=== PATIENT | male | born 1950 | race African-American/Black ===

== ENCOUNTER 2017-04-18 10:44 | Inpatient (IN) ==
[2017-04-18] MEDS ORDERED: SODIUM CHLORIDE 0.9% 500 ML IV STA (11:38)
[2017-04-18 11:50] LABS: Basophils % 0.4 % (0.0-0.8); Eosinophils # 0.3 10*3/uL (0.0-0.87); Hematocrit 36.5 VOL% (42.0-52.0); Hemoglobin 12.4 GM/DL (14.0-18.0); Immature Granulocytes % 0.4 %; Immature Granulocytes Absolute 0.03 #; Lymphocytes # 1.8 10*3/uL (1.4-4.0); Lymphocytes % 20.7 % (21.2-54.2); Mean Corpuscular Hemoglobin 30 PG (27-34); Mean Corpuscular Volume 88.6 FL (87-102); Mean Platelet Volume 9.8 FL (9.6-12.0); Monocytes # 0.7 10*3/uL (0.11-0.8); Monocytes % 7.6 % (1.7-12.7); Neutrophils # 5.7 10*3/uL (1.4-7.4); Neutrophils % 66.9 % (38.7-73.9); Platelet Count 226 T/CUMM (130-400); Red Blood Count 4.12 MC/CUMM (3.8-5.5); Red Cell Distribution Width 13.8 % (9.3-17.3); White Blood Count 8.5 T/CUMM (4-12)
[2017-04-18 12:06] LABS: PT Patient Result 10.9 SECS
--- NOTE | 2017-04-18 12:20 | EKG Report ---
Stationary ECG Study [facility] ER Test Date: 04/18/2017 12:20:43 PM Pat Name: LEIGHA AREVALO Department: Room: Gender: M Staff Rn: : 1950 Requested by: Catrachito Wyatt Order Number: [id number] Reading MD: MARIA DEL CARMEN OLMSTEAD Intervals [place] Rate: 57 P: 32 SD: 169 QRS: 57 QRSD: 98 T: -20 QT: 387 QTc: 381 Interpretive Statements SINUS RHYTHM LOW QRS VOLTAGE IN PRECORDIAL LEADS POSSIBLE INFERIOR MYOCARDIAL INFARCTION, OF INDETERMINATE AGE ANTEROSEPTAL MYOCARDIAL INFARCTION, PROBABLY OLD Electronically Signed On 04-18-17 17:12:23 CDT by MARIA DEL CARMEN OLMSTEAD [email or web address]
--- NOTE | 2017-04-18 12:22 | XRay Report ---
Portable chest. Indication: Shortness of breath. Comparison: January 08, 2016. The heart is enlarged with left ventricular hypertrophy. The pulmonary vasculature is normal. The lung crump are clear. Degenerative changes are present within the spinal column and shoulders. Impression: Stable appearance of the chest. Cardiomegaly. PROCEDURE INTERPRETED AT [facility] DEPARTMENT OF RADIOLOGY Final Report Signed by: Dr. Angelia Ordonez
[2017-04-18 13:18] LABS: Alanine Aminotransferase 18 U/L (16-61); Albumin 3.1 G/DL (3.4-5.0); Alkaline Phosphatase 66 U/L (45-117); Aspartate Amino Transferase 14 U/L (0-37); Bilirubin,Total < 0.39 MG/DL (0.2-1.0); Blood Urea Nitrogen 12 MG/DL (7-18); Calcium 9.4 MG/DL (8.5-10.1); Glucose 117 MG/DL (74-106); Magnesium 2.1 MG/DL (1.8-2.4); Potassium 4.3 MMOL/L (3.5-5.1); Sodium 143 MMOL/L (136-145); Total Protein 6.9 G/DL (6.4-8.3)
--- NOTE | 2017-04-18 13:54 | Emergency Department Note ---
Armando Randall Emily, am scribing for, and in the presence of, Catrachito Pham MD 11:46. Vero Randall Phillip K, MD, personally performed the services described in this documentation, ascribed by Sunitha Roberts in my presence, and it is both accurate and complete [id number] . Arrival - Arrival Chief Complaint: GI Bleed/Rectal ED Nursing Triage Note: HX OF CVA LIMITED INFORMATION FROM PT, DOES SHAKE HIS HEAD TO NO TO COMPLAINTS OF PAIN, PT SENT FOR EVALUATION OF HEMATOCHEZIA Mode of Arrival: Stretcher Limitations: No Limitations Source: Patient Time Seen by Provider: 04/18/17 11:28 - History of Present Illness HPI Narrative: Pt is a 66 y/o male who was transferred from [facility] to ED for evaluation of hematochezia. Pt has mumbled speech from CVA (x2) previously. Pt takes baby aspirin daily and is full code. PMHx of NIDDM. Onset (ago): hour(s) Consistency: constant Severity: moderate Severity scale (1-10): 6 Allergies/Adverse Reactions: Allergies Allergy/AdvReac Type Severity Reaction Status Date / Time No Known Allergies Allergy Verified 04/18/17 10:59 Home Medications: Home Medications Medication Instructions Recorded Confirmed Type Carvedilol [Coreg] 12.5 mg PO BID 10/21/15 04/18/17 History Cyanocobalamin (Vitamin B-12) 1,000 mcg IM Q30D 10/21/15 04/18/17 History [Cyanocobalamin Injection] DULoxetine [Cymbalta] 90 mg PO QAM 10/21/15 04/18/17 History Docusate Sodium Cap [Colace Cap] 200 mg PO QAM 10/21/15 04/18/17 History Lisinopril 40 mg PO QAM 10/21/15 04/18/17 History Metformin HCl 500 mg PO TID 10/21/15 04/18/17 History amLODIPine [Norvasc] 5 mg PO BID 01/06/16 04/18/17 History Bisacodyl Supp [Dulcolax Supp] 10 mg RECTAL BEDTIME #30 01/09/16 04/18/17 Rx Aspirin [Ecotrin] 81 mg PO 0800 01/21/16 04/18/17 History OLANZapine [Olanzapine] 15 mg PO BEDTIME 04/15/16 07/12/17 History Acetaminophen 1,000 mg PO Q6H PRN MDD 3000MG/24H 04/18/17 04/18/17 History Gabapentin [Gabapentin] 600 mg PO BID 04/18/17 04/18/17 History HYDROcodone/ACETAMIN 7.5-325 1 tablet PO DAILY PRN 04/18/17 04/18/17 History [[place] 7.5-325] Insulin Glargine [Lantus] 48 unit SUBCUT BEDTIME 04/18/17 04/18/17 History Insulin Regular [HumuLIN R] 5 - 15 unit SUBCUT 0500,1600,2000 04/18/17 04/18/17 History Omeprazole 20 mg PO QAM 04/18/17 04/18/17 History Review of System - Review of System 12 point system: reviewed and no additional remarkable complaints except as stated - Review of System Constitutional: Absent: fever Respiratory: Absent: respiratory distress Gastrointestinal: Present: hematochezia. Absent: vomiting Skin: Absent: rash Psychiatric: Absent: anxiety Medical,Surgical,& Family Hx - Medical History Cardio: History of: Hypertension, PVD Psychological: History of: Depression No history of: Previous Suicide Attempt Neurology: History of: Cerebrovascular Accident (x2), Dementia No history of: Seizures HEENT: History of: Dental Problems (no teeth) Endocrine: History of: Diabetes Mellitus (NIDDM) Genitourinary: History of: Genitourinary Cancer ([facility]) Gastrointestinal: History of: Gastrointestinal Bleed (current) Musculoskeletal: History of: Amputation (RIGHT AKA) Other: History of: Cancer (PROSTATE) - Surgical History Cardiac Surgeries: Patient Denies: Cardiac Catheterization, Cardiac Surgery Thoracic Surgeries: Patient denies;: Organ Transplant Abdominal Surgeries: Patient denies: Abdominal Surgery, Appendectomy, Cholecystectomy, Colonoscopy , Gastric Bypass Surgery, EGD, Hernia Repair Reproductive Surgeries: Patient denies;: Breast Surgery, Prostate Surgery, Vasectomy Orthopedic Surgeries: Surgical HX of;: Orthopedic Surgery - Family History Family History: Reports;: Family Cancer (brother & sister), Family Diabetes ( father), Family Hypertension (mother), Family Psychiatric Problems (paternal grandmother), Family Stroke (sister) Denies;: Family Anesthesia Reaction, Family Heart Disease - Social History Smoking Status: Never smoker Exam Vital Signs: Vital Signs Temperature 98.2 F 04/18/17 11:08 Pulse Rate 57 L 04/18/17 12:13 Respiratory Rate 18 04/18/17 12:13 Blood Pressure 165/81 04/18/17 12:13 O2 Sat by Pulse Oximetry 100 04/18/17 12:13 - General General appearance: alert, in no apparent distress - Head Head exam: Present: atraumatic, normocephalic - Eye Eye exam: Present: PERRL, EOMI - ENT ENT exam: Present: mucous membranes moist. Absent: mucous membranes dry - Neck Neck exam: Present: full ROM. Absent: tenderness - Chest Chest inspection: Present: symmetric chest wall rise. Absent: tenderness - Respiratory Respiratory exam: Present: normal lung sounds bilaterally. Absent: respiratory distress - Cardiovascular Cardiovascular exam: Present: regular rate, normal rhythm, normal heart sounds. Absent: murmur - Abdominal Exam Abdominal exam: Present: soft, normal bowel sounds. Absent: tenderness - Rectal Exam Rectal exam: Present: heme (+) stool (grossly), fecal impaction (large) - Extremities Exam Extremities exam: Present: other (right AKA). Absent: tenderness, pedal edema ( in left leg) - Neurological Exam Neurological exam: Present: alert, oriented X3, CN II-XII intact, other ( residual of right paralysis). Absent: motor sensory deficit - Psychiatric Psychiatric exam: Present: normal affect, normal mood - Skin Skin exam: Present: warm, dry Results - Labs CBC & BMP: 04/18/17 11:42 04/18/17 11:42 Lab Results: I have reviewed the patients labs Labs: Laboratory Tests 04/18/17 11:42 WBC 8.5 RBC 4.12 Hgb 12.4 L Hct 36.5 L Plt Count 226 Lymph % (Auto) 20.7 L Laboratory Tests 04/18/17 04/18/17 11:42 Unknown Sodium 143 Potassium 4.3 Chloride 107 Carbon Dioxide 27 Glucose 117 H Albumin 3.1 L Globulin 3.8 H Albumin/Globulin Ratio 0.8 L Blood Type A POSITIVE Antibody Screen Negative - EKG EKG results: interpreted by SHANEKA, sinus rhythm (Old inferior ME) - Diagnostic Findings Procedure: Chest x-ray: report reviewed by me (Stable appearance of the chest. Cardiomegaly.) Disposition Clinical Impression: Lower GI bleeding Case discussed with: patient Disposition: Still a Patient Additional Instructions: Admit to the hospitalist
--- NOTE | 2017-04-18 14:24 | CT Report ---
CT of the abdomen and pelvis with intravenous contrast. 100 cc Omni 350. No oral contrast was administered. Indication: Lower GI hemorrhage. Axial images were obtained with sagittal and coronal reconstructions. No comparison. The patient has a history of prostate cancer. The heart is enlarged. There is coronary artery calcification. There is a small amount of pericardial calcification. There is scarring and atelectasis at the lung bases. No pericardial or pleural effusion is seen. The liver is normal in size. There is mild fatty infiltration of the liver. Gallstones are seen. There is no splenic enlargement. There is no adrenal enlargement. There is no pancreatic enlargement. The kidneys are normal in size, location, and contour. No hydronephrosis. No nephrolithiasis. No space-occupying masses. The abdominal aorta is of normal caliber. There is scattered calcific plaque within its wall. There is no free air or free fluid seen within the peritoneal cavity. The stomach is collapsed. The loops of small intestine are not dilated. The terminal ileum and appendix have a normal appearance. The colon is redundant. Throughout its length at is filled with stool, and there is a considerable amount of fecal material within the rectal vault. Some circumferential rectal wall thickening is seen. The prostate gland is normal in size. The urinary bladder presents a normal appearance. There is an umbilical hernia which contains nonstrangulated small intestine. The osseous structures demonstrate faint vague areas of lucency throughout. Impression: 1. Constipation with fecal impaction. Circumferential wall thickening of the rectum which will need inspection by colonoscopy. 2. Cholelithiasis. 3. Umbilical hernia containing nonstrangulated small intestine. 4. Vague lucencies are seen within the osseous structures. Sometimes this is related to osteoporosis. Sometimes this is related to metastatic disease or multiple myeloma. Clinical correlation recommended. Note that it is not typical of prostate metastases. The CT exam was performed using one or more of the following dose reduction techniques: Automated exposure control, adjustment of the mA and/or kV according to patient size, or use of iterative reconstruction technique. PROCEDURE INTERPRETED AT [facility] DEPARTMENT OF RADIOLOGY Final Report Signed by: Dr. Angelia Ordonez
[2017-04-18] MEDS ORDERED: ACETAMINOPHEN 500 MG TABLET PO PRN (14:27)
--- NOTE | 2017-04-18 14:40 | Hospitalist History & Physical ---
Assessment and Plan (1) Lower GI bleeding Status: Acute Assessment and plan: Digital examination performed; heme-positive stools noted in the presence of large fecal impaction. We will keep n.p.o., gently rehydrate, start PPIs, DVT prophylaxis, and consult gastroenterology to evaluate. Hemoglobin and hematocrit are stable at the present time at 12.4 and 36.5; we will monitor closely and recheck CBC in a.m. Current Visit: Yes (2) Anemia Status: Acute Assessment and plan: Hemoglobin and hematocrit are stable at the present time at 12.4 and 36.5; we will monitor closely and recheck CBC in a.m. Current Visit: No (3) Constipation Status: Acute Current Visit: No (4) Hypertension Status: Acute Assessment and plan: Home medications have been reviewed and restarted. We will monitor blood pressure closely during the clinical encounter. Current Visit: No History of Present Illness Chief complaint: Rectal bleed History of present illness: This is a very pleasant 66-year-old male who presented to the ED at [facility] this afternoon from [facility] for the evaluation of rectal bleeding. Patient has a very complex medical history significant for insulin-dependent diabetes mellitus, cerebrovascular accident, alcohol abuse, dysphasia, hemiplegia of the right side, hemorrhoids, hypertension, major depressive disorder, peripheral vascular disease, nicotine addiction, schizoaffective disorder, and hemorrhoids. Patient has a surgical history significant for right [id number] amputation. The patient is aphasic secondary to history of cerebrovascular accident. He normally resides at a long-term care facility. According to the EMS documentation, the nursing staff noted the onset of the above symptoms earlier this morning. They became alarmed due to the multiple episodes of the above experienced by the patient this morning. They report that the patient takes aspirin daily for stroke prophylaxis. The patient was subsequently transferred to [facility] for continuation of care. The patient was immediately assessed at the time of ED presentation. The patient was noted to be hypertensive with a blood pressure noted at 165/81 and experiencing mild bradycardia with a pulse rate noted at 57. Labs were obtained ; complete blood count reported white blood cell count 8.5, hemoglobin 12.4, hematocrit 36.5, and platelet count at 66. Coagulation panel reported INR at 1.0 [employer] at 10.9. Chemistry panel reported sodium at 143, potassium 4.3, chloride 107, carbon dioxide 27, BUN 12, creatinine 0.70, glucose 117, calcium 9.4, magnesium 2.1, and alkaline phosphatase at 66. Chest x-ray was significant for left ventricular hypertrophy and cardiomegaly. CT abdomen pelvis was obtained and significant for the following :constipation with fecal impaction, circumferential wall thickening of the rectum which will need inspection by colonoscopy,cholelithiasis, umbilical hernia containing nonstrangulated small intestine, and vague lucencies are seen within the osseous structures; which could be related to osteoporosis or sometimes this is related to metastatic disease or multiple myeloma. After brief discussion with both Dr. Vero Remy, the patient will be admitted to the hospitalist services for continuation of care. We will consult gastroenterology to evaluate and assist during the clinical encounter. Home medications have been reviewed and reconciled. CODE STATUS discussed; patient is a FULL CODE. Home Medications Medication Instructions Recorded Confirmed Type Carvedilol [Coreg] 12.5 mg PO BID 10/21/15 04/18/17 History Cyanocobalamin (Vitamin B-12) 1,000 mcg IM Q30D 10/21/15 04/18/17 History [Cyanocobalamin Injection] DULoxetine [Cymbalta] 90 mg PO QAM 10/21/15 04/18/17 History Docusate Sodium Cap [Colace Cap] 200 mg PO QAM 10/21/15 04/18/17 History Lisinopril 40 mg PO QAM 10/21/15 04/18/17 History Metformin HCl 500 mg PO TID 10/21/15 04/18/17 History amLODIPine [Norvasc] 5 mg PO BID 01/06/16 04/18/17 History Bisacodyl Supp [Dulcolax Supp] 10 mg RECTAL BEDTIME #30 01/09/16 04/18/17 Rx Aspirin [Ecotrin] 81 mg PO 0800 01/21/16 04/18/17 History OLANZapine [Olanzapine] 15 mg PO BEDTIME 01/21/16 04/18/17 History Acetaminophen 1,000 mg PO Q6H PRN MDD 3000MG/24H 04/18/17 04/18/17 History Gabapentin [Gabapentin] 600 mg PO BID 04/18/17 04/18/17 History HYDROcodone/ACETAMIN 7.5-325 1 tablet PO DAILY PRN 04/18/17 04/18/17 History [[place] 7.5-325] Insulin Glargine [Lantus] 48 unit SUBCUT BEDTIME 04/18/17 04/18/17 History Insulin Regular [HumuLIN R] 5 - 15 unit SUBCUT 0500,1600,2000 04/18/17 04/18/17 History Omeprazole 20 mg PO QAM 04/18/17 04/18/17 History Allergies Allergy/AdvReac Type Severity Reaction Status Date / Time No Known Allergies Allergy Verified 04/18/17 10:59 Medical,Surgical,& Family Hx - Medical History Cardio: History of: Hypertension, PVD Psychological: History of: Depression No history of: Previous Suicide Attempt Neurology: History of: Cerebrovascular Accident (x2), Dementia No history of: Seizures HEENT: History of: Dental Problems (no teeth) Endocrine: History of: Diabetes Mellitus (NIDDM) Genitourinary: History of: Genitourinary Cancer ([facility]) Gastrointestinal: History of: Gastrointestinal Bleed (current) Musculoskeletal: History of: Amputation (RIGHT AKA) Other: History of: Cancer (PROSTATE) - Surgical History Cardiac Surgeries: Patient Denies: Cardiac Catheterization, Cardiac Surgery Thoracic Surgeries: Patient denies;: Organ Transplant Abdominal Surgeries: Patient denies: Abdominal Surgery, Appendectomy, Cholecystectomy, Colonoscopy , Gastric Bypass Surgery, EGD, Hernia Repair Reproductive Surgeries: Patient denies;: Breast Surgery, Prostate Surgery, Vasectomy Orthopedic Surgeries: Surgical HX of;: Orthopedic Surgery - Family History Family History: Reports;: Family Cancer (brother & sister), Family Diabetes ( father), Family Hypertension (mother), Family Psychiatric Problems (paternal grandmother), Family Stroke (sister) Denies;: Family Anesthesia Reaction, Family Heart Disease - Social History Smoking Status: Never smoker 12 point system: reviewed and no additional remarkable complaints except as stated Exam - Constitutional Vitals: Period Temp Pulse Resp BP Sys/Chung Pulse Ox Last 24 Hr 98.2 F-98.2 F 55-60 12-18 144-165/73-81 98-100 General appearance: normal weight, no acute distress - Head Head exam: Present: normal inspection, normocephalic, atraumatic - Eye Eye exam: Present: EOMI. Absent: conjunctival injection, nystagmus Pupils: Present: JOSE, normal accommodation - ENT ENT exam: Present: normal exam, normal external ear exam, normal oropharynx - Neck Neck exam: Present: normal inspection. Absent: lymphadenopathy, meningismus, thyromegaly - Respiratory Respiratory exam: Present: clear to auscultation bilaterally. Absent: rales, rhonchi, stridor, wheezes - Cardiovascular Cardiovascular exam: Present: regular rate and rhythm. Absent: carotid bruit, diastolic murmur, gallop, rubs, systolic murmur - GI/Abdominal GI/Abdominal exam: Present: normal bowel sounds, soft. Absent: tenderness, rebound - Extremities Exam Extremities exam: Present: other (Right [id number] amputation) - Back Exam Back exam: Present: normal inspection - Neurological Exam Neurological exam: Present: alert, other (Aphasic) - Psychiatric Psychiatric exam: Present: normal affect, normal mood - Skin Skin exam: Present: normal color, warm, dry Results - Labs CBC & BMP: 04/18/17 11:42 04/18/17 11:42 Lab Results: I have reviewed the past 24 hour labs
[2017-04-18] MEDS ORDERED: GLUCAGON 1 MG VIAL IM PRN (17:00)
[2017-04-18] MEDS ORDERED: DEXTROSE 50% 25 GM/50 ML VIAL IV PRN (17:00)
[2017-04-18 17:45] LABS: Hematocrit 35.3 VOL% (42.0-52.0); Hemoglobin 11.8 GM/DL (14.0-18.0)
[2017-04-18] MEDS ORDERED: POLYETHYLENE GLYCOL 3350/ELECTROLYTES 4,000 ML BOTTLE NG ONE (18:00)
--- NOTE | 2017-04-18 20:16 | Gastrointestinal Consult Note ---
Assessment and Plan (1) Constipation Status: Acute Current Visit: No (2) Lower gastrointestinal hemorrhage Status: Acute Assessment and plan: This patient was manually disimpacted at the bedside in order to see if he was having rectal bleeding and copious amounts of maroon stool and bright red blood per rectum were noted as a result. Is clear to me that he has either feculent impaction with stercoral ulcer and possibly bleeding vessel as result of this versus internal hemorrhoidal bleeding versus Dieulafoy's lesion in the rectum. I cannot find the results in the previous colonoscopy report but referral was made to internal hemorrhoids and punctate lesion. Given the physical exam today with large impaction any 1 of the above etiologies is potentially possible. I think we should be performing this procedure with an eye towards banding the patient as this was felt to be potentially required to the point where Dr. Miller was consulted on the patient's last hospitalization. Ultimately this patient will need control of his constipation when he leaves the hospital and goes back to the [facility] especially given these multiple admissions for the same issue. Current Visit: No (3) Acute blood loss anemia Status: Resolved Assessment and plan: We will follow the patient's blood drop with serial hematocrits over time-- would suggest transfusion of the patient's hematocrit drops below 24%. Current Visit: No (4) History of hiatal hernia Status: Acute Assessment and plan: This was seen on prior upper endoscopy however no significant upper GI bleeding source was seen. This test will not be repeated especially with the findings on physical examination with fecal impaction and CT scan findings in addition. Risks of the procedure include but are not limited to: Bleeding, infection, perforation, cardiac and pulmonary compromise. Hopefully we can get a family member to consent for not just a colonoscopy with the potential banding. Current Visit: Yes History of Present Illness Chief complaint: Bright red blood per rectum, abnormal CT-- thickened rectum History of present illness: Mr. García is a 66 year old male This is a patient has an expressive aphasia who is presenting with rectal wall thickening and impacted stool with a copious amount of bright red blood mixed with maroon stools coming out per rectum. Interestingly, this patient has been seen by Dr. Guerin, Dr. Templeton with colonoscopy subsequently by Dr. Templeton by report (I see no record of this in the computer but reference is made to it by Dr. Guerin)--according to Dr. Guerin' s notes colonoscopy in this patient demonstrated a punctate lesion in the rectum as well as internal hemorrhoids that were thought to be the source the patient's bleeding. A subsequent upper endoscopy done by Dr. Crane later on on a subsequent admission on 01/25/16 which demonstrated moderate size hiatal hernia but no varices and otherwise normal appearance. It was suggested that the patient bleeds briskly again a tagged red blood cell scan might be helpful in localizing the source of the bleeding. And now the patient returns again with similar lower GI bleeding in association with fecal impaction. This started again today and was noted to have copious amounts of maroon colored stool. I performed the examination before I was able to look into the old records and see that the patient had been seen by 3 other geosciences professor before me. He is basically filling the bed with blood at this point. CT scan shows circumferential thickening in the rectum likely due to copious fecal impaction which I attempted to remove at the bedside with some improvement. I suspect this may be hemorrhoidal in nature or there may be a Dieulafoy's lesion. Patient may benefit from hemorrhoidal banding as well--Dr. Miller have been consulted for this back on 01/25/16 but ultimately did not feel like this was required. Currently this patient's hematocrit is down to 35.3 with a hemoglobin of 11.8 and I suspect it will drop rather significantly given the amount of bleeding IC per rectum now. His INR is normal, his home medications do not include any anticoagulants aside from aspirin 81 mg per day. The patient is being given Colace but apparently this is not enough to clear his stool. He is also on omeprazole to cover him for potential reflux. The patient has an expressive aphasia and really cannot provide any additional history but states that he does not have any abdominal pain or nausea. He does not recall eating anything today. Home Medications Medication Instructions Recorded Confirmed Type Carvedilol [Coreg] 12.5 mg PO BID 10/21/15 04/18/17 History Cyanocobalamin (Vitamin B-12) 1,000 mcg IM Q30D 10/21/15 04/18/17 History [Cyanocobalamin Injection] DULoxetine [Cymbalta] 90 mg PO QAM 10/21/15 04/18/17 History Docusate Sodium Cap [Colace Cap] 200 mg PO QAM 10/21/15 04/18/17 History Lisinopril 40 mg PO QAM 10/21/15 04/18/17 History Metformin HCl 500 mg PO TID 10/21/15 04/18/17 History amLODIPine [Norvasc] 5 mg PO BID 01/06/16 04/18/17 History Bisacodyl Supp [Dulcolax Supp] 10 mg RECTAL BEDTIME #30 01/09/16 04/18/17 Rx Aspirin [Ecotrin] 81 mg PO 0800 01/21/16 04/18/17 History OLANZapine [Olanzapine] 15 mg PO BEDTIME 01/21/16 04/18/17 History Acetaminophen 1,000 mg PO Q6H PRN MDD 3000MG/24H 04/18/17 04/18/17 History Gabapentin [Gabapentin] 600 mg PO BID 04/18/17 04/18/17 History HYDROcodone/ACETAMIN 7.5-325 1 tablet PO DAILY PRN 04/18/17 04/18/17 History [[place] 7.5-325] Insulin Glargine [Lantus] 48 unit SUBCUT BEDTIME 04/18/17 04/18/17 History Insulin Regular [HumuLIN R] 5 - 15 unit SUBCUT 0500,1600,2000 04/18/17 04/18/17 History Omeprazole 20 mg PO QAM 04/18/17 04/18/17 History Allergies Allergy/AdvReac Type Severity Reaction Status Date / Time No Known Allergies Allergy Verified 04/18/17 10:59 Medical,Surgical,& Family Hx - Medical History Cardio: History of: Hypertension, PVD Psychological: History of: Depression No history of: Previous Suicide Attempt Neurology: History of: Cerebrovascular Accident (x2), Dementia No history of: Seizures HEENT: History of: Dental Problems (no teeth) Endocrine: History of: Diabetes Mellitus (NIDDM) Genitourinary: History of: Genitourinary Cancer ([place] cancer [place]) Gastrointestinal: History of: Gastrointestinal Bleed (current) Musculoskeletal: History of: Amputation (RIGHT AKA) Other: History of: Cancer (PROSTATE) - Surgical History Cardiac Surgeries: Patient Denies: Cardiac Catheterization, Cardiac Surgery Thoracic Surgeries: Patient denies;: Organ Transplant Abdominal Surgeries: Patient denies: Abdominal Surgery, Appendectomy, Cholecystectomy, Colonoscopy , Gastric Bypass Surgery, EGD, Hernia Repair Reproductive Surgeries: Patient denies;: Breast Surgery, Prostate Surgery, Vasectomy Orthopedic Surgeries: Surgical HX of;: Orthopedic Surgery - Family History Family History: Reports;: Family Cancer (brother & sister), Family Diabetes ( father), Family Hypertension (mother), Family Psychiatric Problems (paternal grandmother), Family Stroke (sister) Denies;: Family Anesthesia Reaction, Family Heart Disease - Social History Smoking Status: Never smoker ROS unobtainable: other Review of systems: expressive aphasia Exam - Constitutional Vitals: Period Temp Pulse Resp BP Sys/Chung Pulse Ox Last 24 Hr 98.2 F-98.2 F 53-71 12-20 143-171/70-91 98-100 General appearance: mild distress Exam: Patient has an expressive aphasia. - Eye Eye exam: Present: EOMI Pupils: Present: JOSE - Respiratory Respiratory exam: Present: clear to auscultation bilaterally. Absent: rhonchi, stridor, wheezes - Cardiovascular Cardiovascular exam: Present: regular rate and rhythm - GI/Abdominal GI/Abdominal exam: Present: distended, hypoactive bowel sounds, soft. Absent: guarding, tenderness, rebound - Extremities Exam Extremities exam: Present: full ROM (Left upper extremity has full range of motion he has a right-sided hemiparesis. ), other (The patient also has a right -sided AKA). Absent: edema - Neurological Exam Neurological exam: Present: alert, altered (This patient has an expressive aphasia and appears to have a right-sided hemiparesis.), other (Patient can answer some questions with very subtle head movements but the veracity these answers is unclear.) - Psychiatric Psychiatric exam: Present: flat affect - Skin Skin exam: Present: warm Results - Labs CBC & BMP: 04/18/17 17:35 04/18/17 11:42
[2017-04-18] MEDS: INSULIN LISPRO 100 UNIT/ML SUBCUT SCH (20:18)
[2017-04-18] MEDS ORDERED: MAGNESIUM CITRATE 300 ML BOTTLE PO ONE (21:00)
[2017-04-18] MEDS ORDERED: MAGNESIUM CITRATE 300 ML BOTTLE NG ONE (21:00)
[2017-04-18] MEDS ORDERED: INSULIN GLARGINE 100 UNIT/ML SUBCUT SCH (21:00)
[2017-04-18] MEDS: BISACODYL 5 MG TABLET NG SCH (22:19)
[2017-04-18] MEDS: SODIUM CHLORIDE 0.9% 1,000 ML IV SCH (22:19)
[2017-04-18] MEDS: CARVEDILOL 12.5 MG TABLET PO SCH (22:19)
[2017-04-18] MEDS: GABAPENTIN 600 MG TABLET PO SCH (22:19)
[2017-04-18] MEDS: OLANZapine 5 MG TABLET PO SCH (22:19)
[2017-04-18] MEDS: amLODIPine 5 MG TABLET PO SCH (22:21)
[2017-04-19] MEDS: INSULIN LISPRO 100 UNIT/ML SUBCUT SCH ×4 (03:09→18:49)
[2017-04-19] MEDS: SODIUM CHLORIDE 0.9% 1,000 ML IV SCH ×3 (03:09→18:49)
[2017-04-19] MEDS: BISACODYL 5 MG TABLET NG SCH ×2 (04:19→12:58)
[2017-04-19 07:12] LABS: Basophils % 0.2 % (0.0-0.8); Eosinophils # 0.2 10*3/uL (0.0-0.87); Eosinophils % 1.7 % (0.00-10.9); Hematocrit 32.4 VOL% (42.0-52.0); Hemoglobin 10.9 GM/DL (14.0-18.0); Immature Granulocytes % 0.4 %; Immature Granulocytes Absolute 0.04 #; Lymphocytes # 1.6 10*3/uL (1.4-4.0); Lymphocytes % 17.3 % (21.2-54.2); Mean Corpuscular HGB Conc 33.6 GM/DL (32-36); Mean Corpuscular Hemoglobin 30 PG (27-34); Mean Corpuscular Volume 89.3 FL (87-102); Mean Platelet Volume 11.1 FL (9.6-12.0); Monocytes # 0.6 10*3/uL (0.11-0.8); Monocytes % 6.2 % (1.7-12.7); Neutrophils # 6.9 10*3/uL (1.4-7.4); Neutrophils % 74.2 % (38.7-73.9); Platelet Count 217 T/CUMM (130-400); Red Blood Count 3.63 MC/CUMM (3.8-5.5); Red Cell Distribution Width 13.8 % (9.3-17.3); White Blood Count 9.3 T/CUMM (4-12)
[2017-04-19 07:17] LABS: PT Patient Result 10.8 SECS
[2017-04-19 07:48] LABS: Hypochromasia Slight; Microcytosis Slight
--- NOTE | 2017-04-19 08:13 | XRay Report ---
Exam: XR chest/KUB Date: 04/18/2017 8:17 PM Indication: Nasogastric tube placement Comparison: None Technical: Left chest and upper abdomen are evaluated. The right chest is not included are the abdomen in toto. Findings: Nasogastric tube is present the distal tip is along the greater curvature of stomach. Mild gastric distention is present. Mild prominence the cardiac silhouette. Lateral marginal osteophytes thoracic lumbar spine. Left lung reveals no obvious abnormality. The spleen is faintly seen as well as the left kidney. Moderate fecal debris in the left colon. The right abdomen is not included nor the right chest Impression: 1. Nasogastric tube in the stomach along the greater curvature the stomach. PROCEDURE INTERPRETED AT [facility] DEPARTMENT OF RADIOLOGY Final Report Signed by: Dr. Michael Sanches
[2017-04-19] MEDS ORDERED: PROPOFOL 200 MG/20 ML VIAL IV ONE (08:30)
[2017-04-19] MEDS ORDERED: LIDOCAINE 1% 5 ML VIAL ONE (08:30)
--- NOTE | 2017-04-19 08:30 | Operative Note ---
Date of procedure: 04/19/17 Pre-op diagnosis: Rectal bleeding, Hx hemorrhoids and fecal impaction Post-op diagnosis: other (This patient has colonic obstruction with stool at the level of the sigmoid and no response from the GoLYTELY prep given last night. He will need a repeat GoLYTELY prep again today with enemas until clear. ) Procedure: PROCEDURE: Colonoscopy incomplete due to inadequate prep REFERRING PHYSICIAN: Julius Remy MD INDICATIONS: This is a patient who returns from the nursing homewith rectal bleeding from fecal impaction he has been admitted twice for the same issue previously and likely needs hemorrhoidal banding. The prior H&P was reviewed and interrim changes are as noted: No change from GI consultation yesterday ENDOSCOPIST: Royce Booth MD ENDOSCOPE: [employer] 100 System colonoscope COLON PREPARATION: 238 gm of PEG containing laxative and 1.9 liters of gatoraid/sports drink and dulcolax 15 mg q8 hours x 3 magnesium citrate 300ml x 2 with dulcolax 15mg every 8 hours x 3 Golytely 4 liters and dulcolax 15 mg po [id number] x 3 ASA CLASS: 4E EXAM: CV: regular rate and rhythm Respiratory: Clear without wheezes Abdominal: active bowel sounds Rectal: Good tone, no fissures or fistulas MEDICATION: Per nursing anesthesia protocol, see their notes PROCEDURE: After discussion of the potential risks and benefits of colonoscopy, the informed consent was not adequately obtained, from patient or health care surrogate. The patient was then placed in the left lateral decubitus position where sedation was achieved as noted above. Rectal examination was followed by insertion of the colonoscope. The colonoscope was passed under direct visualization to the distal sigmoid and we were blocked by stool at that point and unable to pass further. QUALITY OF PREP: Inadequate WITHDRAWL TIME: 1 minute 30 seconds BIOPSIES: None obtained PHOTOGRAPHS: Obtained FINDINGS: [The musoca were not adequately assessed in the following regions: rectum, low sigmoid colon the colon was not visualized past this point due to obstructing stool. IMPRESSION: This patient has colonic obstruction with stool at the level of the sigmoid and no response from the GoLYTELY prep given last night. He will need a repeat GoLYTELY prep again today with enemas until clear. RECOMMENDATIONS: We absolutely have to have appropriate consent for this patient from family member or health care surrogate to include colonoscopy, biopsy, polypectomy, as well as possible hemostasis including injection, cautery, and banding I will write for another GoLYTELY prep for tomorrow we will keep the patient n.p.o. aside from this prep. Royce Booth MD COPY TO: Julius Remy MD Anesthesia: MAC Surgeon / Physician: Royce Booth Estimated blood loss: minimal Specimens: none sent Condition: stable Disposition: post procedure unit (G.I. Suite) Results - Labs CBC & BMP: 04/19/17 05:00 04/18/17 11:42 Discharge Plan - Discharge Medications No Action DULoxetine [Cymbalta] 90 mg PO QAM Docusate Sodium Cap [Colace Cap] 200 mg PO QAM Carvedilol [Coreg] 12.5 mg PO BID Metformin HCl 500 mg PO TID Lisinopril 40 mg PO QAM Cyanocobalamin (Vitamin B-12) [Cyanocobalamin Injection] 1,000 mcg IM Q30D amLODIPine [Norvasc] 5 mg PO BID Bisacodyl Supp [Dulcolax Supp] 10 mg RECTAL BEDTIME #30 Aspirin [Ecotrin] 81 mg PO 0800 OLANZapine [Olanzapine] 15 mg PO BEDTIME Acetaminophen 1,000 mg PO Q6H PRN MDD 3000MG/24H PRN Reason: Fever, Headache, Mild Pain Gabapentin [Gabapentin] 600 mg PO BID Insulin Glargine [Lantus] 48 unit SUBCUT BEDTIME Omeprazole 20 mg PO QAM Insulin Regular [HumuLIN R] 5 - 15 unit SUBCUT 0500,1600,2000 HYDROcodone/ACETAMIN 7.5-325 [[place] 7.5-325] 1 tablet PO DAILY PRN PRN Reason: PRIOR TO WOUND CARE - Follow Up or Referral - Forms/Instructions
--- NOTE | 2017-04-19 08:51 | Anesthesia Post-Op ---
Anesthesia Post OP - Post Ansesthetic Evaluation Patient seen in post op: Yes Resp: within normal limits CV: within normal limits Mental: within normal limits Temp: within normal limits [id number]: within normal limits Nausea and Vomiting: within normal limits Pain: within normal limits
[2017-04-19] MEDS ORDERED: ePHEDrine 50 MG/ML AMP ONE (08:54)
--- NOTE | 2017-04-19 08:54 | Gastrointestinal Progress Note ---
Assessment and Plan (1) Lower gastrointestinal hemorrhage Status: Acute Assessment and plan: This patient was manually disimpacted at the bedside in order to see if he was having rectal bleeding and copious amounts of maroon stool and bright red blood per rectum were noted as a result. Is clear to me that he has either feculent impaction with stercoral ulcer and possibly bleeding vessel as result of this versus internal hemorrhoidal bleeding versus Dieulafoy's lesion in the rectum. I cannot find the results in the previous colonoscopy report but referral was made to internal hemorrhoids and punctate lesion. Given the physical exam today with large impaction any 1 of the above etiologies is potentially possible. I think we should be performing this procedure with an eye towards banding the patient as this was felt to be potentially required to the point where Dr. Miller was consulted on the patient's last hospitalization. Ultimately this patient will need control of his constipation when he leaves the hospital and goes back to the [facility] especially given these multiple admissions for the same issue. 04/19/17--Unable to assess due to large amount of stool retained in the colon. This patient will need a repeat prep prior to colonoscopy again tomorrow with potential banding if appropriate. Current Visit: No (2) Constipation Status: Acute Assessment and plan: 04/19/17--the patient's fecal impaction was so severe that he was not able to have bowel movements despite the GoLYTELY prep yesterday. He has been this impacted during an attempted colonoscopy today but this was aborted after feces was noted in the low sigmoid. Will need to repeat tomorrow after repeated prep. Current Visit: No (3) Acute blood loss anemia Status: Resolved Assessment and plan: We will follow the patient's blood drop with serial hematocrits over time-- would suggest transfusion of the patient's hematocrit drops below 24%. 04/19/17--the patient's hematocrit is continued to drop. He is currently got a hematocrit of 36.5--> 32.4%. He continues to have maroon colored stool per rectum as his bleeding is ongoing. Nursing staff has not been able to obtain the patient's family for consent and this needs to be done prior to consideration of banding which would fix this patient's problem likely. Current Visit: No (4) History of hiatal hernia Status: Acute Assessment and plan: This was seen on prior upper endoscopy however no significant upper GI bleeding source was seen. This test will not be repeated especially with the findings on physical examination with fecal impaction and CT scan findings in addition. Risks of the procedure include but are not limited to: Bleeding, infection, perforation, cardiac and pulmonary compromise. Hopefully we can get a family member to consent for not just a colonoscopy with the potential banding. 04/19/17--patient does not complain of reflux symptoms. NG tube is in place still which should facilitate a repeat preparation this afternoon. Current Visit: Yes Gastroenterology - PN: Subj Interval history: Patient with expressive aphasia, has had a rough night due to poor prep, apparently tolerated the GoLYTELY but did not have good bowel movement output, nursing staff failed to disimpact the patient appropriately last evening. Procedure was aborted today because of impacted stool at the level of the rectum /sigmoid. Exam (Progress Note) - Constitutional Vitals: Period Temp Pulse Resp BP Sys/Chung Pulse Ox Last 24 Hr 97.0 F-98.2 F 53-73 12-20 123-171/70-91 92-100 General appearance: no acute distress - Eye Eye exam: Present: EOMI - Neck Neck exam: Present: normal inspection - Respiratory Respiratory exam: Present: clear to auscultation bilaterally - GI/Abdominal GI/Abdominal exam: Present: normal bowel sounds, distended, soft. Absent: guarding, tenderness, rebound - Neurological Exam Neurological exam: Present: alert, altered (Expressive aphasia, right-sided hemiparesis) - Psychiatric Psychiatric exam: Present: anxious - Skin Skin exam: Present: warm Results - Labs CBC & BMP: 04/19/17 05:00 04/18/17 11:42
[2017-04-19] MEDS: BISACODYL 5 MG TABLET PO SCH ×2 (10:31→18:49)
[2017-04-19] MEDS: DULoxetine 30 MG CAPSULE PO SCH (10:31)
[2017-04-19] MEDS: GABAPENTIN 600 MG TABLET PO SCH ×2 (10:31→21:39)
[2017-04-19] MEDS: amLODIPine 5 MG TABLET PO SCH ×2 (10:31→21:44)
[2017-04-19] MEDS: CARVEDILOL 12.5 MG TABLET PO SCH ×2 (10:31→21:40)
[2017-04-19] MEDS: LISINOPRIL 20 MG TABLET PO SCH (10:32)
[2017-04-19] MEDS: PANTOPRAZOLE 40 MG VIAL IV SCH (10:41)
[2017-04-19] MEDS ORDERED: POLYETHYLENE GLYCOL 3350/ELECTROLYTES 4,000 ML BOTTLE NG ONE (14:00)
[2017-04-19] MEDS ORDERED: LORazepam 2 MG/1 ML VIAL IV ONE (16:25)
[2017-04-19] MEDS ORDERED: diphenhydrAMINE 50 MG/1 ML VIAL IV ONE (16:25)
--- NOTE | 2017-04-19 16:35 | Hospitalist Progress Note ---
Assessment and Plan (1) Lower GI bleeding Status: Acute Assessment and plan: Digital examination performed; heme-positive stools noted in the presence of large fecal impaction. We will keep n.p.o., gently rehydrate, start PPIs, DVT prophylaxis, and consult gastroenterology to evaluate. Hemoglobin and hematocrit are stable at the present time at 12.4 and 36.5; we will monitor closely and recheck CBC in a.m. 04/19-colonoscopy scheduled in a.m. Patient has been refusing disimpaction. NG tube had been placed in preparation to introduce colon prep. Patient removed NG tube. Staff instructed to reintroduce NG tube; sedative ordered. Staff to resume colon prep as previously ordered. Current Visit: Yes (2) Anemia Status: Acute Assessment and plan: Hemoglobin and hematocrit are stable at the present time at 12.4 and 36.5; we will monitor closely and recheck CBC in a.m. 04/19-noted decrease in previous hemoglobin and hematocrit; hemoglobin noted at 10.9 hematocrit 32.4. A noted decrease from 12.4 and 36.5 at the time of admission. This is a very significant drop. We will monitor closely and recheck CBC in a.m. Patient may eventually require transfusion. Current Visit: No (3) Constipation Status: Acute Assessment and plan: I performed a digital examination and disimpacted a large amount of small amount of stool with clots noted. There was minimal amount of stool noted in the lower rectum; however there was stool that was felt distally. Current Visit: No (4) Hypertension Status: Acute Assessment and plan: Home medications have been reviewed and restarted. We will monitor blood pressure closely during the clinical encounter. Current Visit: No Hospitalist: Subjective Interval history: Patient seen and examined; patient has been noted to have very disruptive behavior today. Patient is resisting care from staff he removed the NG tube. He has refused to let the staff disimpact him. Colonoscopy is scheduled in a.m. Exam - Constitutional Vitals: Period Temp Pulse Resp BP Sys/Chung Pulse Ox Last 24 Hr 97.0 F-98.2 F 60-74 13-20 123-170/64-90 92-100 General appearance: normal weight - Head Head exam: Present: normal inspection, normocephalic - Eye Eye exam: Present: EOMI, conjunctival injection Pupils: Present: JOSE, normal accommodation - ENT ENT exam: Present: normal exam, normal external ear exam, normal oropharynx - Neck Neck exam: Present: normal inspection. Absent: lymphadenopathy, meningismus, tenderness, thyromegaly - Respiratory Respiratory exam: Present: clear to auscultation bilaterally. Absent: rales, rhonchi, stridor, wheezes - Cardiovascular Cardiovascular exam: Present: regular rate and rhythm. Absent: carotid bruit, diastolic murmur, gallop, JVD, rubs, tachycardia - GI/Abdominal GI/Abdominal exam: Present: hypoactive bowel sounds, soft, other (Digital examination performed; patient disimpacted by myself.) - Extremities Exam Extremities exam: Present: edema (Right-sided weakness noted and profound contractures) - Back Exam Back exam: Present: other (Contractures to the right upper extremity; right AKA noted) - Neurological Exam Neurological exam: Present: alert, other (Speech is slurred) - Psychiatric Psychiatric exam: Present: agitated - Skin Skin exam: Present: normal color, warm, dry Results - Labs CBC & BMP: 04/19/17 05:00 04/18/17 11:42 Lab Results: I have reviewed the past 24 hour labs
--- NOTE | 2017-04-19 16:47 | Event Note ---
I was notified by the nursing staff 1 2 E. of patient's refusal of ordered disimpaction by gastroenterology. Spoke with the patient on the need to perform disimpaction. Patient agreed to disimpaction. Disimpaction performed by myself with the nursing staff present. Small amount of soft stool with blood clot noted in the lower portion of the rectum. Although there was a small amount of stool, there was stool noted distally.
--- NOTE | 2017-04-19 18:22 | XRay Report ---
Chest for nasogastric tube placement. The distal tip of the nasogastric tube is in the body the stomach. PROCEDURE INTERPRETED AT [facility] DEPARTMENT OF RADIOLOGY Final Report Signed by: Dr. Angelia Ordonez
[2017-04-19] MEDS ORDERED: MAGNESIUM CITRATE 300 ML BOTTLE PO ONE (21:00)
[2017-04-19] MEDS: OLANZapine 5 MG TABLET PO SCH (21:40)
[2017-04-19] MEDS ORDERED: LORazepam 2 MG/1 ML VIAL IV PRN (22:26)
[2017-04-20] MEDS: BISACODYL 5 MG TABLET PO SCH (00:36)
[2017-04-20] MEDS: INSULIN LISPRO 100 UNIT/ML SUBCUT SCH ×4 (00:37→17:43)
[2017-04-20 05:48] LABS: Basophils % 0.2 % (0.0-0.8); Eosinophils # 0.2 10*3/uL (0.0-0.87); Eosinophils % 2.2 % (0.00-10.9); Hematocrit 30.2 VOL% (42.0-52.0); Immature Granulocytes % 0.6 %; Immature Granulocytes Absolute 0.05 #; Lymphocytes # 1.8 10*3/uL (1.4-4.0); Lymphocytes % 21.9 % (21.2-54.2); Mean Corpuscular HGB Conc 33.1 GM/DL (32-36); Mean Corpuscular Hemoglobin 29 PG (27-34); Mean Platelet Volume 10.1 FL (9.6-12.0); Monocytes # 0.8 10*3/uL (0.11-0.8); Monocytes % 9.4 % (1.7-12.7); Neutrophils # 5.4 10*3/uL (1.4-7.4); Neutrophils % 65.7 % (38.7-73.9); Platelet Count 237 T/CUMM (130-400); Red Blood Count 3.43 MC/CUMM (3.8-5.5); Red Cell Distribution Width 13.4 % (9.3-17.3); White Blood Count 8.3 T/CUMM (4-12)
[2017-04-20 06:07] LABS: INR 1.1; PT Patient Result 11.4 SECS
[2017-04-20 06:21] LABS: Bilirubin,Total 0.7 MG/DL (0.2-1.0); Calcium 8.9 MG/DL (8.5-10.1); Magnesium 2.5 MG/DL (1.8-2.4); Phosphorous 2.1 MG/DL (2.5-4.9); Potassium 4.1 MMOL/L (3.5-5.1); Total Protein 6.1 G/DL (6.4-8.3)
--- NOTE | 2017-04-20 08:56 | Hospitalist Progress Note ---
Assessment and Plan (1) Lower GI bleeding Status: Acute Assessment and plan: Digital examination performed; heme-positive stools noted in the presence of large fecal impaction. We will keep n.p.o., gently rehydrate, start PPIs, DVT prophylaxis, and consult gastroenterology to evaluate. Hemoglobin and hematocrit are stable at the present time at 12.4 and 36.5; we will monitor closely and recheck CBC in a.m. 04/19-colonoscopy scheduled in a.m. Patient has been refusing disimpaction. NG tube had been placed in preparation to introduce colon prep. Patient removed NG tube. Staff instructed to reintroduce NG tube; sedative ordered. Staff to resume colon prep as previously ordered. 04/20-colonoscopy scheduled for this a.m. H&H is stable at 10.0/30.2. Current Visit: Yes (2) Anemia Status: Acute Assessment and plan: Hemoglobin and hematocrit are stable at the present time at 12.4 and 36.5; we will monitor closely and recheck CBC in a.m. 04/19-noted decrease in previous hemoglobin and hematocrit; hemoglobin noted at 10.9 hematocrit 32.4. A noted decrease from 12.4 and 36.5 at the time of admission. This is a very significant drop. We will monitor closely and recheck CBC in a.m. Patient may eventually require transfusion. 04/20-hemoglobin and hematocrit noted at 10.9 and 30.4; minimal changes noted from yesterday. We will monitor closely and recheck CBC in a.m. Current Visit: No (3) Constipation Status: Acute Assessment and plan: I performed a digital examination and disimpacted a large amount of small amount of stool with clots noted. There was minimal amount of stool noted in the lower rectum; however there was stool that was felt distally. 04/20-digital impaction removed twice on yesterday wants by Dr. Booth and the second one by myself. Small amount of stool with clots noted in the lower bowel tract; however there was a large amount of formed stool noted distally. Current Visit: No (4) Hypertension Status: Acute Assessment and plan: Home medications have been reviewed and restarted. We will monitor blood pressure closely during the clinical encounter. Current Visit: No Hospitalist: Subjective Interval history: Patient seen and examined; no significant overnight events reported. Remains n.p.o. for colonoscopy this a.m. Hemoglobin hematocrit stable at 10.0 and 30.2. Exam - Constitutional Vitals: Period Temp Pulse Resp BP Sys/Chung Pulse Ox Last 24 Hr 96.8 F-98.1 F 61-83 13-22 127-196/69-87 94-100 General appearance: normal weight, no acute distress - Head Head exam: Present: normal inspection, normocephalic - Eye Eye exam: Present: EOMI, conjunctival injection Pupils: Present: JOSE, normal accommodation - ENT ENT exam: Present: normal exam, normal external ear exam, normal oropharynx - Neck Neck exam: Present: normal inspection, lymphadenopathy, meningismus, thyromegaly - Respiratory Respiratory exam: Present: clear to auscultation bilaterally. Absent: rales, rhonchi, stridor, wheezes - Cardiovascular Cardiovascular exam: Present: regular rate and rhythm. Absent: carotid bruit, diastolic murmur, gallop, rubs, systolic murmur, tachycardia - GI/Abdominal GI/Abdominal exam: Present: normal bowel sounds, soft - Extremities Exam Extremities exam: Present: other (Right-sided weakness and profound contractures ; right AKA) - Back Exam Back exam: Present: normal inspection - Neurological Exam Neurological exam: Present: alert, altered, other - Skin Skin exam: Present: warm, dry Results - Labs CBC & BMP: 04/20/17 05:05 04/20/17 05:05 Lab Results: I have reviewed the past 24 hour labs
--- NOTE | 2017-04-20 09:48 | Operative Note ---
Date of procedure: 04/20/17 Pre-op diagnosis: Fecal impaction, rectal bleeding 3 episodes Post-op diagnosis: other (Large polyp noted in the mid ascending colon removed by snare in piecemeal fashion, stercoral ulcers in association with redundant tissue in the rectum and hemorrhoids thought to be a source of this patient's significant bleeding certainly may worsen by fecal impaction. This patient was treated with hemorrhoidal banding 5 and endoscopic clipping 2 of a visible vessel.) Procedure: PROCEDURE: Colonoscopy with hot snare polypectomy and hemorrhoidal banding and endoscopic clipping 2 for hemostasis REFERRING PHYSICIAN: Julius Remy MD INDICATIONS: This is a patient who has had his third admission for rectal bleeding since January 2016, he has become impacted in the [facility] and has required a great deal of MiraLAX and manual disimpaction as well as stimulant laxatives in order to get his colon relatively clean to see whether or not a source for the bleeding can be identified. His situation has been made more difficult by inability to get in touch with the patient's family the prior H&P was reviewed and interrim changes are as noted: ENDOSCOPIST: Royce Booth MD ENDOSCOPE: Hello! [employer] Video 100 System colonoscope COLON PREPARATION: 238 gm of PEG containing laxative and 1.9 liters of gatoraid/sports drink and dulcolax 15 mg q8 hours x 3 magnesium citrate 300ml x 2 with dulcolax 15mg every 8 hours x 3 Golytely 4 liters and dulcolax 15 mg po [id number] x 3 ASA CLASS: EXAM: CV: regular rate and rhythm Respiratory: Clear without wheezes Abdominal: active bowel sounds Rectal: Good tone, no fissures or fistulas MEDICATION: Per nursing anesthesia protocol, see their notes PROCEDURE: After discussion of the potential risks and benefits of colonoscopy, the informed consent was obtained, from patient or health care surrogate. The patient was then placed in the left lateral decubitus position where sedation was achieved as noted above. Rectal examination was followed by insertion of the colonoscope. The colonoscope was passed under direct visualization to the cecum. Advancement was facilitated by insertion/withdrawl techniques, abdominal pressure and patient positioning. Once the cecal pole was reached, slow withdrawal was performed with the findings as noted below. The patient tolerated the procedure well and without complication. QUALITY OF PREP: Excellent WITHDRAWL TIME: 7 minutes 33 seconds BIOPSIES: Ascending polyp removed PHOTOGRAPHS: Obtained FINDINGS: The musoca appeared normal in the following regions: sigmoid colon, descending colon, splenic flexure, transverse colon, hepatic flexure, ascending colon and cecum. Position within the cecum was confirmed by ileocecal valve, appendiceal oriface, and the convergence of folds (crows foot). No colitis, mass or AVM was noted throughout the colon. This patient had a large polyp approximately 2 cm in the mid ascending colon that was removed by, snare polypectomy in piecemeal fashion. Mild left-sided diverticulosis noted. The patient's bleeding appeared to be coming from stercoral ulcers in association with redundant hemorrhoidal tissue in the low rectum, banding placed over a particularly redundant piece of tissue that appeared somewhat polypoid and ulcerated, this was treated with banding 5 bands and treatment of the visible vessel with endoscopic clipping 2 for hemostasis.. Intubation of the TI was achieved x 5 cm with normal appearence IMPRESSION: Large polyp noted in the mid ascending colon removed by snare in piecemeal fashion, stercoral ulcers in association with redundant tissue in the rectum and hemorrhoids thought to be a source of this patient's significant bleeding certainly may worsen by fecal impaction. This patient was treated with hemorrhoidal banding 5 and endoscopic clipping 2 of a visible vessel. RECOMMENDATIONS: High fiber diet Repeat colonosocopy will be in 3 years to 10 years depending on pathology of the polyp removed. This patient needs to be on MiraLAX 1 capful twice to 3 times daily in order to produce to loose bowel movements per day. Follow up by phone for biopsy results in 1-2 weeks by phone Royce Booth MD COPY TO: Julius Remy MD Anesthesia: MAC Surgeon / Physician: Royce Booth Estimated blood loss: minimal Specimens: other (Ascending polyp 1) Condition: stable Disposition: post procedure unit ([facility]) Results - Labs CBC & BMP: 04/20/17 05:05 04/20/17 05:05 Discharge Plan - Discharge Medications No Action DULoxetine [Cymbalta] 90 mg PO QAM Docusate Sodium Cap [Colace Cap] 200 mg PO QAM Carvedilol [Coreg] 12.5 mg PO BID Metformin HCl 500 mg PO TID Lisinopril 40 mg PO QAM Cyanocobalamin (Vitamin B-12) [Cyanocobalamin Injection] 1,000 mcg IM Q30D amLODIPine [Norvasc] 5 mg PO BID Bisacodyl Supp [Dulcolax Supp] 10 mg RECTAL BEDTIME #30 Aspirin [Ecotrin] 81 mg PO 0800 OLANZapine [Olanzapine] 15 mg PO BEDTIME Acetaminophen 1,000 mg PO Q6H PRN MDD 3000MG/24H PRN Reason: Fever, Headache, Mild Pain Gabapentin [Gabapentin] 600 mg PO BID Insulin Glargine [Lantus] 48 unit SUBCUT BEDTIME Omeprazole 20 mg PO QAM Insulin Regular [HumuLIN R] 5 - 15 unit SUBCUT 0500,1600,2000 HYDROcodone/ACETAMIN 7.5-325 [[place] 7.5-325] 1 tablet PO DAILY PRN PRN Reason: PRIOR TO WOUND CARE - Follow Up or Referral - Forms/Instructions
--- NOTE | 2017-04-20 09:51 | Anesthesia Post-Op ---
Anesthesia Post OP - Post Ansesthetic Evaluation Patient seen in post op: Yes Resp: within normal limits CV: within normal limits Mental: within normal limits Temp: within normal limits Gmts-[id number]-[id number]: within normal limits Nausea and Vomiting: within normal limits Pain: within normal limits
--- NOTE | 2017-04-20 09:52 | Gastrointestinal Progress Note ---
Assessment and Plan (1) Lower gastrointestinal hemorrhage Status: Acute Assessment and plan: This patient was manually disimpacted at the bedside in order to see if he was having rectal bleeding and copious amounts of maroon stool and bright red blood per rectum were noted as a result. Is clear to me that he has either feculent impaction with stercoral ulcer and possibly bleeding vessel as result of this versus internal hemorrhoidal bleeding versus Dieulafoy's lesion in the rectum. I cannot find the results in the previous colonoscopy report but referral was made to internal hemorrhoids and punctate lesion. Given the physical exam today with large impaction any 1 of the above etiologies is potentially possible. I think we should be performing this procedure with an eye towards banding the patient as this was felt to be potentially required to the point where Dr. Miller was consulted on the patient's last hospitalization. Ultimately this patient will need control of his constipation when he leaves the hospital and goes back to the half-way especially given these multiple admissions for the same issue. 04/19/17--Unable to assess due to large amount of stool retained in the colon. This patient will need a repeat prep prior to colonoscopy again tomorrow with potential banding if appropriate. 04/20/17--this patient ended up having stercoral ulcers 1 of which had a visible vessel in the center that was treated with endo-clipping but also moderate to large size hemorrhoids that were treated with banding during the colonoscopy. Strangely the patient did have a colon polyp that was midway up the ascending colon that was 2 cm in size removed by snare polypectomy. Current Visit: No (2) Constipation Status: Acute Assessment and plan: 04/19/17--the patient's fecal impaction was so severe that he was not able to have bowel movements despite the GoLYTELY prep yesterday. He has been this impacted during an attempted colonoscopy today but this was aborted after feces was noted in the low sigmoid. Will need to repeat tomorrow after repeated prep. 04/20/17--The patient has been taking MiraLAX and should be doing well as a result of using this 3 times daily. This will need to continue with the half-way. I feel that he could probably return tomorrow if he is stable and having no further rectal bleeding. It might be prudent to watch him for the next 24 hours and make sure that he has having no further rectal bleeding given the visible vessel seen and endoscopic procedures performed Current Visit: No (3) Acute blood loss anemia Status: Resolved Assessment and plan: We will follow the patient's blood drop with serial hematocrits over time-- would suggest transfusion of the patient's hematocrit drops below 24%. 04/19/17--the patient's hematocrit is continued to drop. He is currently got a hematocrit of 36.5--> 32.4%. He continues to have maroon colored stool per rectum as his bleeding is ongoing. Nursing staff has not been able to obtain the patient's family for consent and this needs to be done prior to consideration of banding which would fix this patient's problem likely. 04/20/17--the patient's hematocrit is down to 30% today. This needs to be observed over the next 24 hours and then potentially he can be discharged home. We were able to get a hold of his sister for consent for the banding. Current Visit: No (4) Colon polyps Status: Acute Assessment and plan: Single polyp noted in the patient's ascending colon removed by hot snare polypectomy this was fairly large and appeared villous. Pathology is pending. Current Visit: Yes (5) History of hiatal hernia Status: Acute Assessment and plan: This was seen on prior upper endoscopy however no significant upper GI bleeding source was seen. This test will not be repeated especially with the findings on physical examination with fecal impaction and CT scan findings in addition. Risks of the procedure include but are not limited to: Bleeding, infection, perforation, cardiac and pulmonary compromise. Hopefully we can get a family member to consent for not just a colonoscopy with the potential banding. 04/19/17--patient does not complain of reflux symptoms. NG tube is in place still which should facilitate a repeat preparation this afternoon. Current Visit: Yes Gastroenterology - PN: Subj Interval history: No new complaints, the patient is cleaned out this morning and able to undergo repeat colonoscopy Exam (Progress Note) - Constitutional Vitals: Period Temp Pulse Resp BP Sys/Chung Pulse Ox Last 24 Hr 96.8 F-98.1 F 61-83 20-22 148-196/72-87 94-100 General appearance: mild distress - Head Head exam: Present: normocephalic - Eye Eye exam: Present: EOMI - Respiratory Respiratory exam: Present: clear to auscultation bilaterally - GI/Abdominal GI/Abdominal exam: Present: distended, soft. Absent: guarding, tenderness, rebound Results - Labs CBC & BMP: 04/20/17 05:05 04/20/17 05:05
[2017-04-20] MEDS: DULoxetine 30 MG CAPSULE PO SCH (11:25)
[2017-04-20] MEDS: CARVEDILOL 12.5 MG TABLET PO SCH ×2 (11:25→21:41)
[2017-04-20] MEDS: GABAPENTIN 600 MG TABLET PO SCH ×2 (11:25→21:41)
[2017-04-20] MEDS: amLODIPine 5 MG TABLET PO SCH ×2 (11:25→21:41)
[2017-04-20] MEDS: LISINOPRIL 20 MG TABLET PO SCH (11:26)
[2017-04-20] MEDS: PANTOPRAZOLE 40 MG VIAL IV SCH (11:30)
[2017-04-20] MEDS: SODIUM CHLORIDE 0.9% 1,000 ML IV SCH (16:06)
[2017-04-20] MEDS: OLANZapine 5 MG TABLET PO SCH (21:41)
[2017-04-21] MEDS: SODIUM CHLORIDE 0.9% 1,000 ML IV SCH ×3 (00:06→09:43)
[2017-04-21] MEDS: INSULIN LISPRO 100 UNIT/ML SUBCUT SCH ×3 (00:54→12:11)
[2017-04-21 05:59] LABS: PT Patient Result 11.1 SECS
[2017-04-21] MEDS: DULoxetine 30 MG CAPSULE PO SCH (09:32)
[2017-04-21] MEDS: GABAPENTIN 600 MG TABLET PO SCH (09:32)
[2017-04-21] MEDS: LISINOPRIL 20 MG TABLET PO SCH (09:32)
[2017-04-21] MEDS: CARVEDILOL 12.5 MG TABLET PO SCH (09:32)
[2017-04-21] MEDS: PANTOPRAZOLE 40 MG VIAL IV SCH (09:32)
[2017-04-21] MEDS: amLODIPine 5 MG TABLET PO SCH (09:32)
--- NOTE | 2017-04-21 10:28 | Discharge Summary ---
Hospital Course - Hospital Course Hospital Course: Discharge diagnosis: 1. Lower GI bleed 2. Chronic constipation 3. Stercoral ulcer, source of the GI bleed, likely due to #2. 4. Type II DM 5. Old stroke The patient presented to the hospital for evaluation of some rectal bleeding. He was found to have a large stool impaction that was apparently manually removed by GI. Subsequent to that, the patient underwent colonoscopy, with findings of stercoral ulceration. He also had some internal hemorrhoids. These were treated with banding. His hemoglobin remained stable following the procedure. He is now ready for discharge. Medication reconciliation has been performed. Resume prior diet. Activity as tolerated. Follow-up with [facility] physician [facility]. Discharge Plan - Discharge Data Disposition: Disch/Xfer to Snf Condition at Discharge: Stable Discharge Diet: advance to your usual diet Activity: resume usual activities as tolerated - Discharge Medications Continue DULoxetine [Cymbalta] 90 mg PO QAM Docusate Sodium Cap [Colace Cap] 200 mg PO QAM Carvedilol [Coreg] 12.5 mg PO BID Metformin HCl 500 mg PO TID Lisinopril 40 mg PO QAM Cyanocobalamin (Vitamin B-12) [Cyanocobalamin Injection] 1,000 mcg IM Q30D amLODIPine [Norvasc] 5 mg PO BID Bisacodyl Supp [Dulcolax Supp] 10 mg RECTAL BEDTIME #30 Aspirin [Ecotrin] 81 mg PO 0800 OLANZapine [Olanzapine] 15 mg PO BEDTIME Acetaminophen 1,000 mg PO Q6H PRN MDD 3000MG/24H PRN Reason: Fever, Headache, Mild Pain Gabapentin 600 mg PO BID Insulin Glargine [Lantus] 48 unit SUBCUT BEDTIME Omeprazole 20 mg PO QAM Insulin Regular [HumuLIN R] 5 - 15 unit SUBCUT 0500,1600,2000 HYDROcodone/ACETAMIN 7.5-325 [[place] 7.5-325] 1 tablet PO DAILY PRN PRN Reason: PRIOR TO WOUND CARE - Follow Up or Referral - Forms/Instructions Exam - Constitutional Vitals: Period Temp Pulse Resp BP Sys/Chung Pulse Ox Last 24 Hr 96.2 F-98.8 F 59-82 16-20 103-180/60-91 95-98 Vital signs are noted above. He is awake and conversant. Heart is regular with a 2/6 systolic murmur. Chest is clear. Abdomen is soft with no mass. Discharge Results Labs on day of discharge: Labs from last 24 hours 04/21/17 04/21/17 04/21/17 08:01 06:01 05:27 INR 1.0 PT Patient/Control Mix 11.1 POC Glucose 123 H 118 H 04/21/17 04/20/17 04/20/17 01:05 23:45 16:03 INR PT Patient/Control Mix POC Glucose 172 H 189 H 258 H 04/20/17 11:44 INR PT Patient/Control Mix POC Glucose 97 DS: Provider Date of admission: 04/18/17 14:15 Primary care physician: . No PCP Attending physician on admission: Julius Remy MD Consults: 04/18/17 14:26 Consult to Physician [CONS] Routine Comment: Consulting Provider: Royce Booth When should Consulting Provider be notified: Now Consult to Specialist Group: Gastroenterology 04/18/17 19:33 Consult to Dietitian [CONS] Routine Reason for Dietitian: Diet Recommendations Discharging clinician: Chino Ace MD Expected date of discharge: 04/21/17
[2017-04-21 12:32] VITALS: BP 124/71
--- NOTE | 2017-04-23 12:21 | Pathology Report from [facility] ---
[facility] ACCESSION # : [id number] PATIENT NAME : Leigha Arevalo ORDERING DR : Royce Booth MD CLINICAL HX: Rectal bleed POST-OP DX: Colon polyp ascending SPECIMEN INFO: Colon polyp, ascending GROSS DESCRIPTION: The specimen is received in formalin labeled with the patients name and consists of a 2.0 x 1.0 cm aggregate of weiner tissue. Submitted in one cassette. DIAGNOSIS FOR LEIGHA AREVALO: ASCENDING COLON POLYP: Villous adenoma. COLLECTED DATE: 04/20/2017 [facility] REPORT DATE: 04/23/2017 ELECTRONICALLY SIGNED BY: Vadim Reed M.D. 04/23/2017 - 10:09:37 [facility]
== END 2017-04-21 12:20 | DRG 348 ==
LOC: EDUNIT# → EDBD → N.ED 10:44 → SUATTDRO 14:15 → N.EDINP 14:15 → N.2E 18:31
PROVIDERS: ADMIT Internal Medicine; ATTEND Internal Medicine Geriatric Medicine
PROC: [UNRECOGNIZED PROCEDURE] (2017-04-20 07:05)

== ENCOUNTER 2017-04-24 20:54 | Inpatient (IN) ==
[2017-04-24 21:34] LABS: Basophils % 0.1 % (0.0-0.8); Eosinophils # 0.4 10*3/uL (0.0-0.87); Eosinophils % 4.1 % (0.00-10.9); Hematocrit 19.8 VOL% (42.0-52.0); Hemoglobin 6.6 GM/DL (14.0-18.0); Immature Granulocytes % 0.6 %; Immature Granulocytes Absolute 0.06 #; Lymphocytes # 2.6 10*3/uL (1.4-4.0); Lymphocytes % 23.8 % (21.2-54.2); Mean Corpuscular HGB Conc 33.3 GM/DL (32-36); Mean Corpuscular Hemoglobin 30 PG (27-34); Mean Corpuscular Volume 89.2 FL (87-102); Mean Platelet Volume 9.8 FL (9.6-12.0); Monocytes # 0.9 10*3/uL (0.11-0.8); Monocytes % 7.9 % (1.7-12.7); Neutrophils # 6.9 10*3/uL (1.4-7.4); Neutrophils % 63.5 % (38.7-73.9); Platelet Count 250 T/CUMM (130-400); Red Blood Count 2.22 MC/CUMM (3.8-5.5); Red Cell Distribution Width 14.3 % (9.3-17.3); White Blood Count 10.9 T/CUMM (4-12)
[2017-04-24 21:47] LABS: PT Patient Result 10.3 SECS; Partial Thromboplastin Time 27.3 SECS (0-40)
[2017-04-24 21:55] LABS: Alanine Aminotransferase 19 U/L (16-61); Albumin 2.9 G/DL (3.4-5.0); Alkaline Phosphatase 61 U/L (45-117); Aspartate Amino Transferase 10 U/L (0-37); Bilirubin,Total < 0.39 MG/DL (0.2-1.0); Blood Urea Nitrogen 8 MG/DL (7-18); Calcium 8.6 MG/DL (8.5-10.1); Glucose 175 MG/DL (74-106); Osmolality,Calculated 287.8 MOS/KG (273-304); Potassium 3.8 MMOL/L (3.5-5.1); Sodium 144 MMOL/L (136-145)
--- NOTE | 2017-04-24 22:00 | Emergency Department Note ---
IArmando Emily, am scribing for, and in the presence of, Last Granados MD 21:17. Roberta Randall Hans, MD, personally performed the services described in this documentation, ascribed by Sunitha Roberts in my presence, and it is both accurate and complete . Arrival - Arrival Chief Complaint: GI Bleed/Rectal ED Nursing Triage Note: Pt arrives via ems from [facility] with complaints of one bloody stool. Report given is that pt was found to have one bright red stool prior to eating tonight. Pt was just recently discharged from hospital for gi bleed and newly diagnosed with hemorrhoids. Pt has no complaints at time of triage. Mode of Arrival: Stretcher Source: Patient, RN Notes Reviewed Time Seen by Provider: 04/24/17 21:07 - History of Present Illness HPI Narrative: Pt is a 66 y/o male who came by EMS from [facility] for further evaluation one bloody stool earlier this evening found when eating tonight. jail reports bright red stool. Pt was just recently discharged from hospital for GI bleed and newly diagnosed with hemorrhoids. Pt does answer basic questions and denies any pain at this time. Onset (ago): hour(s) Consistency: constant Severity: mild Severity scale (1-10): 3 Quality: other (bleeding) Allergies/Adverse Reactions: Allergies Allergy/AdvReac Type Severity Reaction Status Date / Time No Known Allergies Allergy Verified 04/18/17 10:59 Home Medications: Home Medications Medication Instructions Recorded Confirmed Type Carvedilol [Coreg] 12.5 mg PO BID 10/21/15 04/24/17 History Cyanocobalamin (Vitamin B-12) 1,000 mcg IM Q30D 10/21/15 04/24/17 History [Cyanocobalamin Injection] DULoxetine [Cymbalta] 90 mg PO QAM 10/21/15 04/24/17 History Docusate Sodium Cap [Colace Cap] 200 mg PO QAM 10/21/15 04/24/17 History Lisinopril 40 mg PO QAM 10/21/15 04/24/17 History Metformin HCl 500 mg PO TID 10/21/15 04/24/17 History amLODIPine [Norvasc] 5 mg PO BID 01/06/16 04/24/17 History Bisacodyl Supp [Dulcolax Supp] 10 mg RECTAL BEDTIME #30 01/09/16 04/24/17 Rx Aspirin [Ecotrin] 81 mg PO 0800 01/21/16 04/24/17 History OLANZapine [Olanzapine] 15 mg PO BEDTIME 01/21/16 04/24/17 History Acetaminophen 1,000 mg PO Q6H PRN MDD 3000MG/24H 04/18/17 04/24/17 History Gabapentin 600 mg PO BID 04/18/17 04/24/17 History HYDROcodone/ACETAMIN 7.5-325 1 tablet PO DAILY PRN 04/18/17 04/24/17 History [[place] 7.5-325] Insulin Glargine [Lantus] 48 unit SUBCUT BEDTIME 04/18/17 04/24/17 History Insulin Regular [HumuLIN R] 5 - 15 unit SUBCUT 0500,1600,199904/18/17 04/24/17 History Omeprazole 20 mg PO QAM 04/18/17 04/24/17 History Review of System - Review of System 12 point system: reviewed and no additional remarkable complaints except as stated - Review of System Constitutional: Absent: fever Respiratory: Absent: respiratory distress Cardiovascular: Absent: chest pain Gastrointestinal: Absent: abdominal pain Genitourinary male: Present: other (blood in stool). Absent: hematuria Musculoskeletal: Absent: arm pain, back pain Skin: Absent: rash Neurological: Absent: headache Medical,Surgical,& Family Hx - Medical History Cardio: History of: Hypertension, PVD Psychological: History of: Depression No history of: Previous Suicide Attempt Neurology: History of: Cerebrovascular Accident (x2), Dementia No history of: Seizures HEENT: History of: Dental Problems (no teeth) Endocrine: History of: Diabetes Mellitus (NIDDM) Genitourinary: History of: Genitourinary Cancer ([place] [facility] [place]) Gastrointestinal: History of: Gastrointestinal Bleed (current) Musculoskeletal: History of: Amputation (RIGHT AKA) Other: History of: Cancer (PROSTATE) - Surgical History Cardiac Surgeries: Patient Denies: Cardiac Catheterization, Cardiac Surgery Thoracic Surgeries: Patient denies;: Organ Transplant Abdominal Surgeries: Patient denies: Abdominal Surgery, Appendectomy, Cholecystectomy, Colonoscopy , Gastric Bypass Surgery, EGD, Hernia Repair Reproductive Surgeries: Patient denies;: Breast Surgery, Prostate Surgery, Vasectomy Orthopedic Surgeries: Surgical HX of;: Orthopedic Surgery - Family History Family History: Reports;: Family Cancer (brother & sister), Family Diabetes ( father), Family Hypertension (mother), Family Psychiatric Problems (paternal grandmother), Family Stroke (sister) Denies;: Family Anesthesia Reaction, Family Heart Disease - Social History Smoking Status: Unknown if ever smoked Frequency of Alcohol Use: None Type of Drug Use: None Marital Status: Single 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 Absent: mucous membranes dry - Neck Neck exam: Present: full ROM. Absent: tenderness - Chest Chest inspection: Present: symmetric chest wall rise. Absent: tenderness - Respiratory Respiratory exam: Present: normal lung sounds bilaterally. Absent: respiratory distress - Cardiovascular Cardiovascular exam: Present: regular rate, normal rhythm, normal heart sounds - Abdominal Exam Abdominal exam: Present: soft. Absent: tenderness - Rectal Exam Rectal exam: Present: decreased rectal tone, heme (+) stool (blood is maroon in color). Absent: fecal impaction, mass - Extremities Exam Extremities exam: Absent: pedal edema - Neurological Exam Neurological exam: Present: alert, CN II-XII intact, other (answers basic questions) - Psychiatric Psychiatric exam: Present: normal affect, normal mood (at nml baseline) - Skin Skin exam: Present: warm, dry Course Course Narrative: This patient was evaluated with lab work revealing hemoglobin down to 6.6. A type and screen was pending at this time and he will be admitted for transfusion and GI consultation due to the ulcer in his rectum with prior endoscopic clipping of visible vessel. He is hemodynamically stable here in the ER. I have discussed his care with the hospitalist on-call who will see him shortly Results - Labs CBC & BMP: 04/24/17 21:24 04/24/17 21:24 Disposition Clinical Impression: Rectal bleeding, Hematochezia Case discussed with: patient, patient's family Disposition: Still a Patient Condition: Stable Instructions: Rectal Bleeding (ED) Time of Disposition: 22:00
--- NOTE | 2017-04-24 22:30 | Hospitalist History & Physical ---
Assessment and Plan (1) Anemia Status: Acute Current Visit: No (2) Diabetes Status: Acute Current Visit: No (3) History of dementia Status: Acute Current Visit: No (4) History of hiatal hernia Status: Acute Current Visit: No (5) Hypertension Status: Acute Current Visit: No (6) Lower gastrointestinal hemorrhage Status: Acute Current Visit: No (7) Peripheral vascular disease Status: Acute Current Visit: No (8) History of schizophrenia Status: Chronic Current Visit: No (9) History of stroke Status: Chronic Current Visit: No (10) Internal hemorrhoids Status: Chronic Assessment and plan: Our plan for this patient will be admitting him to ICU transfuse 2 units packed red blood cells and monitor H&H. Will consult Dr. Booth in the morning. Additional transfusions will be made based on his hemoglobin and hematocrit. Vital signs are stable at this time. Continue other meds as appropriate. Get a wound care consult for his chronic wound Current Visit: No History of Present Illness Chief complaint: GI bleeding History of present illness: Mr. García is a 66 year old male with past medical history significant for hypertension, prostate cancer, major depressive disorder, peripheral vascular disease, chronic wound, diabetes and history of hemiplegia secondary to stroke presents to our ER tonight. Patient was hospitalized and discharged 3 days ago. He presents to the hospital for evaluation of rectal bleeding. He was found to have a large stool impaction that was manually removed by GI. He underwent a colonoscopy with findings of a ulceration and internal hemorrhoids. They were treated with banding. His hemoglobin at that time was stable. Apparently at the snf he had a bloody bowel movement and was sent up here for further evaluation. Has significant drop in his hemoglobin and hematocrit. I was consulted to admit the patient. Home Medications Medication Instructions Recorded Confirmed Type Carvedilol [Coreg] 12.5 mg PO BID 10/21/15 04/24/17 History Cyanocobalamin (Vitamin B-12) 1,000 mcg IM Q30D 10/21/15 04/24/17 History [Cyanocobalamin Injection] DULoxetine [Cymbalta] 90 mg PO QAM 10/21/15 04/24/17 History Docusate Sodium Cap [Colace Cap] 200 mg PO QAM 10/21/15 04/24/17 History Lisinopril 40 mg PO QAM 10/21/15 04/24/17 History Metformin HCl 500 mg PO TID 10/21/15 04/24/17 History amLODIPine [Norvasc] 5 mg PO BID 01/06/16 04/24/17 History Bisacodyl Supp [Dulcolax Supp] 10 mg RECTAL BEDTIME #30 01/09/16 04/24/17 Rx Aspirin [Ecotrin] 81 mg PO 0800 01/21/16 04/24/17 History OLANZapine [Olanzapine] 15 mg PO BEDTIME 01/21/16 04/24/17 History Acetaminophen 1,000 mg PO Q6H PRN MDD 3000MG/24H 04/18/17 04/24/17 History Gabapentin 600 mg PO BID 04/18/17 04/24/17 History HYDROcodone/ACETAMIN 7.5-325 1 tablet PO DAILY PRN 04/18/17 04/24/17 History [[place] 7.5-325] Insulin Glargine [Lantus] 48 unit SUBCUT BEDTIME 04/18/17 04/24/17 History Insulin Regular [HumuLIN R] 5 - 15 unit SUBCUT 0500,1600,2000 04/18/17 04/24/17 History Omeprazole 20 mg PO QAM 04/18/17 04/24/17 History Allergies Allergy/AdvReac Type Severity Reaction Status Date / Time No Known Allergies Allergy Verified 04/18/17 10:59 Medical,Surgical,& Family Hx - Medical History Cardio: History of: Hypertension, PVD Psychological: History of: Depression No history of: Previous Suicide Attempt Neurology: History of: Cerebrovascular Accident (x2), Dementia No history of: Seizures HEENT: History of: Dental Problems (no teeth) Endocrine: History of: Diabetes Mellitus (NIDDM) Genitourinary: History of: Genitourinary Cancer ([place] [facility] [place]) Gastrointestinal: History of: Gastrointestinal Bleed (current) Musculoskeletal: History of: Amputation (RIGHT AKA) Other: History of: Cancer (PROSTATE) - Surgical History Cardiac Surgeries: Patient Denies: Cardiac Catheterization, Cardiac Surgery Thoracic Surgeries: Patient denies;: Organ Transplant Abdominal Surgeries: Patient denies: Abdominal Surgery, Appendectomy, Cholecystectomy, Colonoscopy , Gastric Bypass Surgery, EGD, Hernia Repair Reproductive Surgeries: Patient denies;: Breast Surgery, Prostate Surgery, Vasectomy Orthopedic Surgeries: Surgical HX of;: Orthopedic Surgery - Family History Family History: Reports;: Family Cancer (brother & sister), Family Diabetes ( father), Family Hypertension (mother), Family Psychiatric Problems (paternal grandmother), Family Stroke (sister) Denies;: Family Anesthesia Reaction, Family Heart Disease - Social History Smoking Status: Unknown if ever smoked Frequency of Alcohol Use: None Type of Drug Use: None ROS unobtainable: due to mental status Exam - Constitutional Vitals: Period Temp Pulse Resp BP Sys/Chung Pulse Ox Last 24 Hr 98.4 F-98.4 F 65-65 18-18 182-182/85-85 100 General appearance: over weight - Head Head exam: Present: normal inspection - Eye Pupils: Present: JOSE - ENT ENT exam: Present: normal exam - Neck Neck exam: Present: normal inspection - Respiratory Respiratory exam: Present: clear to auscultation bilaterally - Cardiovascular Cardiovascular exam: Present: regular rate and rhythm - GI/Abdominal GI/Abdominal exam: Present: hypoactive bowel sounds, other (Patient has gross blood on rectal exam) - Extremities Exam Extremities exam: Present: other (Patient has an [id number] amputation on the left) - Back Exam Back exam: Present: normal inspection - Neurological Exam Neurological exam: Present: alert (Patient can answer some questions pretty much yes and no he has slurred speech he is at his baseline) - Psychiatric Psychiatric exam: Present: flat affect - Skin Skin exam: Present: normal color Results - Labs CBC & BMP: 04/24/17 21:24 04/24/17 21:24
[2017-04-24] MEDS ORDERED: ONDANSETRON 4 MG/2 ML VIAL IV PRN (22:33)
[2017-04-24] MEDS ORDERED: ALBUTEROL 2.5 MG/3 ML NEB RESP TX PRN (22:33)
[2017-04-24] MEDS ORDERED: ACETAMINOPHEN 500 MG TABLET PO PRN (22:47)
[2017-04-24] MEDS ORDERED: DEXTROSE 50% 25 GM/50 ML VIAL IV PRN (22:49)
[2017-04-24] MEDS ORDERED: GLUCAGON 1 MG VIAL IM PRN (22:49)
[2017-04-25] MEDS: OLANZapine 5 MG TABLET PO SCH ×2 (00:17→23:04)
[2017-04-25] MEDS ORDERED: SODIUM CHLORIDE 0.9% 250 ML IV PRN (00:19)
--- NOTE | 2017-04-25 06:56 | Gastrointestinal Progress Note ---
Assessment and Plan (1) Lower gastrointestinal hemorrhage Status: Acute Assessment and plan: This patient had a fairly large polyp removed from the ascending colon which proved to be a villous polyp and might certainly be experiencing a post polypectomy bleed, more likely however is the visible vessel in the rectum that required Endo Clip 2 has opened up and cause further bleeding. This is been associated with a plexus of large internal hemorrhoids which are irritated with the patient's prolonged constipation. I attempted to band these on his last admission approximately 5 days ago and I am concerned that he the bands have come loose or the endo-clipping was not successful and the artery has opened up again. I have ordered a tagged red blood cell scan to look for active bleeding in the proximal ascending colon however if this is not seen I would strongly suggest getting a surgery for hemorrhoidal resection to take care of the problem more definitively for this patient. We attempted to do the hemorrhoidal banding and this was partially successful and I am extremely suspicious that the visible vessel seen will be a recurrent problem for this patient and is not going to be amenable to endoscopic treatment with his ongoing constipation even with judicious use of MiraLAX. Current Visit: No (2) Acute blood loss anemia Status: Resolved Assessment and plan: Patient's hematocrit is dropped from 30% to about 19% and he is getting a 2 unit transfusion. We will continue to monitor his hematocrit over time. Again I suspect this is probably coming from the visible vessel or the hemorrhoids in the rectum. Current Visit: No (3) Internal hemorrhoids Status: Chronic Assessment and plan: Likely the source of the patient's rectal bleeding either from the visible vessel previously seen or from the hemorrhoids themselves. This patient is prone to impaction and stercoral ulcers in addition. He does not appear to be amenable to endoscopic treatment thus far. Current Visit: No (4) Colon polyps Status: Acute Assessment and plan: This patient had an ascending colon villous polyp that was fair sized, tighter blood cell scan to make sure that the oozing and bleeding seen from the rectum is not coming from this region. We will continue to observe on high doses of MiraLAX 1 capful 4 times daily. This will serve the purpose of flushing out the colon in keeping her bowel movements loose/avoiding impaction. Current Visit: No Gastroenterology - PN: Subj Interval history: This is a patient who is seen for consultation just 7 days ago and I will not repeat the consultation, simply refer to the workup prior to discharge for full details. He has a hematocrit dropped from 30.2 on his last admission down to 19.8% with what appears to be a voluminous rectal bleed very likely due to the hemorrhoids previously seen and stercoral ulcer possibly. On his last admission , we attempted to band on 04/20/17 with some success and 5 the bands holding at that time but an endoscopic clip over visible vessel was required. This patient is predisposed to fecal impaction and likely the bands have either come off or the Hemoclip dislodged from the rectum. On physical examination today he has not impacted in some the bands at least are felt in place. The patient has been kept on MiraLAX as an outpatient but developed voluminous rectal bleeding last night requiring admission. Please see my full consultation on 09/23 for full details. A large polyp was removed more proximally as well with pathology demonstrating a villous adenoma--this will require repeat colonoscopy in 3 years. Exam (Progress Note) - Constitutional Vitals: Period Temp Pulse Resp BP Sys/Chung Pulse Ox Last 24 Hr 97.2 F-98.6 F 60-74 10-18 100-182/50-87 94-100 General appearance: mild distress - Head Head exam: Present: normocephalic - Eye Eye exam: Present: EOMI - Respiratory Respiratory exam: Present: clear to auscultation bilaterally - Cardiovascular Cardiovascular exam: Present: regular rate and rhythm - GI/Abdominal GI/Abdominal exam: Present: normal bowel sounds, soft, other (Rectal exam shows maroon/red stool that is grossly guaiac positive and soft, no impaction noted.) . Absent: distended, guarding, tenderness, rebound - Extremities Exam Extremities exam: Present: normal inspection - Neurological Exam Neurological exam: Present: alert, altered (Expressive aphasia), other (Patient can follow repeated commands when plainly stated.) - Psychiatric Psychiatric exam: Present: flat affect - Skin Skin exam: Present: warm Results - Labs CBC & BMP: 04/24/17 21:24 04/24/17 21:24 Specialty Discharge - Follow Up or Referrals
[2017-04-25 07:43] LABS: Hematocrit 27.8 VOL% (42.0-52.0)
[2017-04-25] MEDS: INSULIN REGULAR 100 UNIT/ML SUBCUT SCH ×4 (07:43→23:35)
[2017-04-25 07:47] LABS: Hemoglobin 9.5 GM/DL (14.0-18.0)
[2017-04-25] MEDS: DULoxetine 30 MG CAPSULE PO SCH (08:32)
[2017-04-25] MEDS: amLODIPine 5 MG TABLET PO SCH ×2 (08:33→23:04)
[2017-04-25] MEDS: POLYETHYLENE GLYCOL POWDER 17 GM PACK PO SCH ×4 (08:33→23:05)
[2017-04-25] MEDS: LISINOPRIL 20 MG TABLET PO SCH (08:33)
[2017-04-25] MEDS: GABAPENTIN 600 MG TABLET PO SCH ×2 (08:34→23:04)
[2017-04-25] MEDS ORDERED: DOCUSATE SODIUM 100 MG CAPSULE PO SCH (09:00)
--- NOTE | 2017-04-25 09:31 | Nuclear Medicine Report ---
History is recent polypectomy with the GI bleeding 20 mCi technetium 99m labeled PYP utilized. Imaging performed through 1 hour. Likely renal activity overlies the abdomen bilaterally No progressively accumulating areas of radiotracer activity coursing along bowel seen to suggest GI bleeding site. Impression: Negative GI bleeding study PROCEDURE INTERPRETED AT [facility] DEPARTMENT OF RADIOLOGY Final Report Signed by: Dr. Nimisha Ordonez
--- NOTE | 2017-04-25 09:40 | Hospitalist Progress Note ---
Assessment and Plan - Time spent with patient Time spent with patient: Greater than 30 minutes (1) Rectal bleeding Status: Acute Assessment and plan: Follow-up tagged red blood cell scan Current Visit: Yes (2) Acute blood loss anemia Status: Acute Assessment and plan: 2 units PRBC transfused. Continue to monitor further bleeding Current Visit: No (3) History of stroke Status: Chronic Current Visit: Yes (4) History of dementia Status: Chronic Current Visit: Yes (5) Diabetes Status: Chronic Current Visit: Yes Qualifiers: Diabetes mellitus type: type 2 (6) Hypertension Status: Chronic Current Visit: Yes Qualifiers: Hypertension type: essential hypertension Qualified Code(s): I10 - Essential (primary) hypertension (7) Colon polyps Status: Acute Current Visit: No Hospitalist: Subjective Interval history: Patient seen and examined. No acute events overnight. Case discussed with nursing staff. Labs reviewed. History and physical reviewed. GI consult appreciated. Tagged red blood cell scan planned for this morning. Surgery consult placed. 2 units of packed red blood cells transfused 2 this morning. Repeat H&H 9.5/27.8 Exam - Constitutional Vitals: Period Temp Pulse Resp BP Sys/Chung Pulse Ox Last 24 Hr 97.2 F-98.6 F 59-74 10-24 100-182/50-87 94-100 Exam: Constitutional System: Mild distress. No tremulousness. He appears chronically ill Head: Normocephalic, atraumatic. Ears, Nose and Throat System: No pain or tenderness. No epistaxis or discharge Eyes System: Pupils equal, round, and reactive. Extraocular muscles intact. Neck: Supple, without adenopathy, No jugular venous distention. Respiratory System: Chest clear to auscultation. Cardiovascular System: Heart with regular rate and rhythm. No murmur. GI System: Abdomen soft, nontender. Normo active bowel sounds present. Neurological System: Slurred speech at baseline with minimal verbal responses. Results - Labs CBC & BMP: 04/25/17 07:37 04/24/17 21:24 Lab Results: I have reviewed the past 24 hour labs Specialty Discharge - Follow Up or Referrals
[2017-04-25] MEDS: PANTOPRAZOLE 40 MG VIAL IV SCH ×2 (09:43→23:04)
--- NOTE | 2017-04-25 15:18 | General Surgery Consult Note ---
Assessment and Plan - Time spent with patient Time spent with patient: Less than 30 minutes (1) Lower gastrointestinal hemorrhage Status: Acute Assessment and plan: He appears to be stable and not actively bleeding. If he has any further signs of bleeding then we could taken to the operating room. Obviously he will be at high risk for complications. This will need to be done under general anesthesia. I may or may not be able to visualize the bleeding site transanally but if so we could look at oversewing. I do not appreciate his hemorrhoids on physical exam but this is a very difficult exam. I would favor oversewing rather than trying to do a formal hemorrhoidectomy but this would depend on what we are seeing at the time of surgery. The bleeding site that I am palpating appears to be well above the dentate line and above the typical site for a typical hemorrhoid. Current Visit: No History of Present Illness Chief complaint: Rectal bleeding History of present illness: Mr. García is a 66 year old male With a history of GI bleeding. He had recent polypectomy and was admitted through the emergency department for rectal bleeding. His last colonoscopy he had apparently banding and in the clipping of a visible vessel in his rectum. The patient has required 2 units of blood and has just completed a bleeding scan that is negative. I cannot get any history from the patient. Please note that this note is a late entry as I saw the patient this morning. Home Medications Medication Instructions Recorded Confirmed Type Carvedilol [Coreg] 12.5 mg PO BID 10/21/15 04/24/17 History Cyanocobalamin (Vitamin B-12) 1,000 mcg IM Q30D 10/21/15 04/24/17 History [Cyanocobalamin Injection] DULoxetine [Cymbalta] 90 mg PO QAM 10/21/15 04/24/17 History Docusate Sodium Cap [Colace Cap] 200 mg PO QAM 10/21/15 04/24/17 History Lisinopril 40 mg PO QAM 10/21/15 04/24/17 History Metformin HCl 500 mg PO TID 10/21/15 04/24/17 History amLODIPine [Norvasc] 5 mg PO BID 01/06/16 04/24/17 History Bisacodyl Supp [Dulcolax Supp] 10 mg RECTAL BEDTIME #30 01/09/16 04/24/17 Rx Aspirin [Ecotrin] 81 mg PO 0800 01/21/16 04/24/17 History OLANZapine [Olanzapine] 15 mg PO BEDTIME 01/21/16 04/24/17 History Acetaminophen 1,000 mg PO Q6H PRN MDD 3000MG/24H 04/18/17 04/24/17 History Gabapentin 600 mg PO BID 04/18/17 04/24/17 History HYDROcodone/ACETAMIN 7.5-325 1 tablet PO DAILY PRN 04/18/17 04/24/17 History [[place] 7.5-325] Insulin Glargine [Lantus] 48 unit SUBCUT BEDTIME 04/18/17 04/24/17 History Insulin Regular [HumuLIN R] 5 - 15 unit SUBCUT 0500,1600,2000 04/18/17 04/24/17 History Omeprazole 20 mg PO QAM 04/18/17 04/24/17 History Allergies Allergy/AdvReac Type Severity Reaction Status Date / Time No Known Allergies Allergy Verified 04/18/17 10:59 Medical,Surgical,& Family Hx - Medical History Cardio: History of: Hypertension, PVD Psychological: History of: Depression, Schizophrenia No history of: Previous Suicide Attempt Neurology: History of: Cerebrovascular Accident (x2), Dementia No history of: Seizures HEENT: History of: Dental Problems (no teeth) Endocrine: History of: Diabetes Mellitus (IDDM), Diabetes Mellitus (NIDDM) Genitourinary: History of: Prostate Problems (prostate CA), Genitourinary Cancer ([facility]) Gastrointestinal: History of: Gastrointestinal Bleed (current), Hemorrhoids, Hematochezia Musculoskeletal: History of: Amputation (RIGHT AKA) Other: History of: Cancer (PROSTATE) - Surgical History Cardiac Surgeries: Patient Denies: Cardiac Catheterization, Cardiac Surgery Thoracic Surgeries: Patient denies;: Organ Transplant, Lobectomy Abdominal Surgeries: Patient denies: Abdominal Surgery, Appendectomy, Cholecystectomy, Colonoscopy , Gastric Bypass Surgery, EGD, Hernia Repair Reproductive Surgeries: Patient denies;: Breast Surgery, Prostate Surgery, Vasectomy Orthopedic Surgeries: Surgical HX of;: Orthopedic Surgery - Family History Family History: Reports;: Family Cancer (brother & sister), Family Diabetes ( father), Family Hypertension (mother), Family Psychiatric Problems (paternal grandmother), Family Stroke (sister) Denies;: Family Anesthesia Reaction, Family Heart Disease - Social History Smoking Status: Unknown if ever smoked Frequency of Alcohol Use: None Type of Drug Use: None ROS unobtainable: due to mental status Exam - Constitutional Vitals: Period Temp Pulse Resp BP Sys/Chung Pulse Ox Last 24 Hr 97.2 F-98.6 F 48-74 10-24 100-182/50-87 94-100 General appearance: no acute distress - Eye Eye exam: Absent: scleral icterus - Neck Neck exam: Present: trachea midline - Respiratory Respiratory exam: Present: clear to auscultation bilaterally. Absent: accessory muscle use - Cardiovascular Cardiovascular exam: Present: RRR - GI/Abdominal GI/Abdominal exam: Present: soft. Absent: distended, tenderness - Anus/Rectum Anus/Rectum: other (There is old blood in the rectal vault. He has minimal rectal tone. I can palpate an area that is probably a an Endo Clip at my fingertip posteriorly.) - Back Exam Back exam: Present: normal inspection - Neurological Exam Neurological exam: Present: altered Results - Labs CBC & BMP: 04/25/17 07:37 04/24/17 21:24 Lab Results: I have reviewed the past 24 hour labs Specialty Discharge - Follow Up or Referrals
[2017-04-25 16:18] LABS: Hematocrit 29.6 VOL% (42.0-52.0)
[2017-04-25 21:14] LABS: Hematocrit 32.6 VOL% (42.0-52.0); Hemoglobin 11.1 GM/DL (14.0-18.0)
[2017-04-26 04:16] LABS: Basophils % 0.3 % (0.0-0.8); Eosinophils # 0.3 10*3/uL (0.0-0.87); Eosinophils % 4.1 % (0.00-10.9); Hematocrit 30.4 VOL% (42.0-52.0); Hemoglobin 10.3 GM/DL (14.0-18.0); Immature Granulocytes % 0.4 %; Immature Granulocytes Absolute 0.03 #; Lymphocytes # 1.8 10*3/uL (1.4-4.0); Lymphocytes % 24.3 % (21.2-54.2); Mean Corpuscular HGB Conc 33.9 GM/DL (32-36); Mean Corpuscular Hemoglobin 30 PG (27-34); Mean Corpuscular Volume 88.1 FL (87-102); Mean Platelet Volume 9.8 FL (9.6-12.0); Monocytes # 0.7 10*3/uL (0.11-0.8); Monocytes % 8.8 % (1.7-12.7); Neutrophils # 4.7 10*3/uL (1.4-7.4); Neutrophils % 62.1 % (38.7-73.9); Platelet Count 220 T/CUMM (130-400); Red Blood Count 3.45 MC/CUMM (3.8-5.5); Red Cell Distribution Width 14.3 % (9.3-17.3); White Blood Count 7.5 T/CUMM (4-12)
[2017-04-26 04:45] LABS: Calcium 9.1 MG/DL (8.5-10.1); Magnesium 1.9 MG/DL (1.8-2.4); Potassium 3.6 MMOL/L (3.5-5.1)
--- NOTE | 2017-04-26 08:58 | Gastrointestinal Progress Note ---
Assessment and Plan (1) Lower gastrointestinal hemorrhage Status: Acute Assessment and plan: This patient had a fairly large polyp removed from the ascending colon which proved to be a villous polyp and might certainly be experiencing a post polypectomy bleed, more likely however is the visible vessel in the rectum that required Endo Clip 2 has opened up and cause further bleeding. This is been associated with a plexus of large internal hemorrhoids which are irritated with the patient's prolonged constipation. I attempted to band these on his last admission approximately 5 days ago and I am concerned that he the bands have come loose or the endo-clipping was not successful and the artery has opened up again. I have ordered a tagged red blood cell scan to look for active bleeding in the proximal ascending colon however if this is not seen I would strongly suggest getting a surgery for hemorrhoidal resection to take care of the problem more definitively for this patient. We attempted to do the hemorrhoidal banding and this was partially successful and I am extremely suspicious that the visible vessel seen will be a recurrent problem for this patient and is not going to be amenable to endoscopic treatment with his ongoing constipation even with judicious use of MiraLAX. 04/26/17--This patient's tagged red blood cell scan was negative, surgery is seen the patient and will consider a rectal ulcer oversew if this becomes necessary. I think if he is maintained on MiraLAX 3 times daily that he should have loosening of bowels to keep this area from being overly irritated. I would wait another week or so before doing any evaluation for rectal impaction to allow the ulcer to heal. The patient could likely be transferred out of the ICU for observation up on the floor for 1 more day at least. Current Visit: No (2) Acute blood loss anemia Status: Acute Assessment and plan: Patient's hematocrit is dropped from 30% to about 19% and he is getting a 2 unit transfusion. We will continue to monitor his hematocrit over time. Again I suspect this is probably coming from the visible vessel or the hemorrhoids in the rectum. 04/26/17--the patient is stable at this point, presumed site of loss is the rectal ulcer with visible vessel status post endo-clipping 2. Current hospitalization likely due to loss of the endoclips on the visible vessel. Current Visit: No (3) Internal hemorrhoids Status: Chronic Assessment and plan: Likely the source of the patient's rectal bleeding either from the visible vessel previously seen or from the hemorrhoids themselves. This patient is prone to impaction and stercoral ulcers in addition. He does not appear to be amenable to endoscopic treatment thus far. 04/26/17--No repeat colonoscopy is anticipated. Watch the patient on MiraLAX as we continue to flush him for resolution of the blood loss. Current Visit: No (4) Colon polyps Status: Acute Assessment and plan: This patient had an ascending colon villous polyp that was fair sized, tighter blood cell scan to make sure that the oozing and bleeding seen from the rectum is not coming from this region. We will continue to observe on high doses of MiraLAX 1 capful 4 times daily. This will serve the purpose of flushing out the colon in keeping her bowel movements loose/avoiding impaction. 04/26/17--this patient will need a repeat colonoscopy in April 2020. Current Visit: No Gastroenterology - PN: Subj Interval history: No new complaints, patient is hungry, hematocrit appears to be stable. Appreciate surgery/Dr. Persaud the third seeing this patient and their input. They seem to favor an ulcer oversew rather than a hemorrhoidal resection. The bleeding scan was negative for bleeding coming from the ascending colon with a previous polyp had been removed. It is presumed that the patient had rectal bleeding from the stercoral ulcer with visible vessel, previously clipped. Hematocrit trend has been from 29.6 up to 32.6 and then down again this morning to 30.4% with equilibration. The patient has had only a "smear" of rectal bleeding this morning. Exam (Progress Note) - Constitutional Vitals: Period Temp Pulse Resp BP Sys/Chung Pulse Ox Last 24 Hr 97.7 F-98.3 F 48-74 10-23 121-186/60-116 94-100 General appearance: no acute distress - Head Head exam: Present: normocephalic - Eye Eye exam: Present: EOMI Pupils: Present: JOSE - Cardiovascular Cardiovascular exam: Present: regular rate and rhythm - GI/Abdominal GI/Abdominal exam: Present: normal bowel sounds, soft. Absent: distended, tenderness, rebound - Extremities Exam Extremities exam: Present: edema, other (Right AKA noted) - Neurological Exam Neurological exam: Present: alert, oriented X3 - Psychiatric Psychiatric exam: Present: normal affect, normal mood - Skin Skin exam: Present: warm Results - Labs CBC & BMP: 04/26/17 03:48 04/26/17 03:48 Specialty Discharge - Follow Up or Referrals
--- NOTE | 2017-04-26 09:23 | General Surgery Progress Note ---
Assessment and Plan (1) Lower gastrointestinal hemorrhage Status: Acute Assessment and plan: He appears to be stable and not actively bleeding. If he has any further signs of bleeding then we could taken to the operating room. Obviously he will be at high risk for complications. This will need to be done under general anesthesia. I may or may not be able to visualize the bleeding site transanally but if so we could look at oversewing. I do not appreciate his hemorrhoids on physical exam but this is a very difficult exam. I would favor oversewing rather than trying to do a formal hemorrhoidectomy but this would depend on what we are seeing at the time of surgery. The bleeding site that I am palpating appears to be well above the dentate line and above the typical site for a typical hemorrhoid. 04/26: He has not had any rectal bleeding since yesterday. I see no signs of active bleeding. If he has further bleeding we may consider operative exploration transanally. Current Visit: No Subjective Patient reports: Present: no new complaints. Absent: blood in stool Exam - Constitutional Vitals: Period Temp Pulse Resp BP Sys/Chung Pulse Ox Last 24 Hr 97.7 F-98.3 F 48-74 10-23 121-186/60-116 94-100 - Respiratory Respiratory exam: Absent: accessory muscle use - GI/Abdominal GI/Abdominal exam: Present: soft. Absent: distended Results - Labs CBC & BMP: 04/26/17 03:48 04/26/17 03:48 Lab Results: I have reviewed the past 24 hour labs Specialty Discharge - Follow Up or Referrals
[2017-04-26] MEDS: POLYETHYLENE GLYCOL POWDER 17 GM PACK PO SCH ×4 (10:14→21:54)
[2017-04-26] MEDS: PANTOPRAZOLE 40 MG VIAL IV SCH ×2 (10:15→21:55)
[2017-04-26] MEDS: LISINOPRIL 20 MG TABLET PO SCH (10:15)
[2017-04-26] MEDS: GABAPENTIN 600 MG TABLET PO SCH ×2 (10:15→21:54)
[2017-04-26] MEDS: amLODIPine 5 MG TABLET PO SCH ×2 (10:16→21:54)
[2017-04-26] MEDS: DULoxetine 30 MG CAPSULE PO SCH (10:16)
[2017-04-26] MEDS: INSULIN REGULAR 100 UNIT/ML SUBCUT SCH ×4 (10:28→22:07)
--- NOTE | 2017-04-26 15:57 | Hospitalist Progress Note ---
Assessment and Plan (1) Rectal bleeding Status: Acute Assessment and plan: Negative tagged red blood cell scan Current Visit: Yes (2) Acute blood loss anemia Status: Acute Assessment and plan: 2 units PRBC transfused. Continue to monitor further bleeding Current Visit: No (3) History of stroke Status: Chronic Current Visit: Yes (4) History of dementia Status: Chronic Current Visit: Yes (5) Diabetes Status: Chronic Current Visit: Yes Qualifiers: Diabetes mellitus type: type 2 (6) Hypertension Status: Chronic Current Visit: Yes Qualifiers: Hypertension type: essential hypertension Qualified Code(s): I10 - Essential (primary) hypertension (7) Colon polyps Status: Acute Current Visit: No Hospitalist: Subjective Interval history: Patient seen and examined. No acute events overnight. Case discussed with nursing staff. Labs reviewed. No further bleeding. Transferred to the floor. H&H stable. Exam - Constitutional Vitals: Period Temp Pulse Resp BP Sys/Chung Pulse Ox Last 24 Hr 97.4 F-98.3 F 56-78 10-23 115-186/60-116 94-100 Exam: Constitutional System: No distress. No tremulousness. He appears chronically ill Head: Normocephalic, atraumatic. Ears, Nose and Throat System: No pain or tenderness. No epistaxis or discharge Eyes System: Pupils equal, round, and reactive. Extraocular muscles intact. Neck: Supple, without adenopathy, No jugular venous distention. Respiratory System: Chest clear to auscultation. Cardiovascular System: Heart with regular rate and rhythm. No murmur. GI System: Abdomen soft, nontender. Normo active bowel sounds present. Neurological System: Slurred speech at baseline with minimal verbal responses. Results - Labs CBC & BMP: 04/26/17 03:48 04/26/17 03:48 Lab Results: I have reviewed the past 24 hour labs Specialty Discharge - Follow Up or Referrals
[2017-04-26] MEDS ORDERED: INSULIN GLARGINE 100 UNIT/ML SUBCUT SCH (21:00)
[2017-04-26] MEDS: OLANZapine 5 MG TABLET PO SCH (21:54)
[2017-04-26] MEDS: CARVEDILOL 12.5 MG TABLET PO SCH (21:54)
[2017-04-26] MEDS: metFORMIN 500 MG TABLET PO SCH (21:54)
[2017-04-27 05:29] LABS: Basophils % 0.3 % (0.0-0.8); Eosinophils # 0.3 10*3/uL (0.0-0.87); Eosinophils % 3.9 % (0.00-10.9); Hematocrit 31.7 VOL% (42.0-52.0); Hemoglobin 10.4 GM/DL (14.0-18.0); Immature Granulocytes % 0.4 %; Immature Granulocytes Absolute 0.03 #; Lymphocytes # 1.8 10*3/uL (1.4-4.0); Lymphocytes % 25.8 % (21.2-54.2); Mean Corpuscular HGB Conc 32.8 GM/DL (32-36); Mean Corpuscular Hemoglobin 29 PG (27-34); Mean Corpuscular Volume 88.5 FL (87-102); Mean Platelet Volume 10.3 FL (9.6-12.0); Monocytes # 0.7 10*3/uL (0.11-0.8); Monocytes % 9.8 % (1.7-12.7); Neutrophils # 4.3 10*3/uL (1.4-7.4); Neutrophils % 59.8 % (38.7-73.9); Platelet Count 248 T/CUMM (130-400); Red Blood Count 3.58 MC/CUMM (3.8-5.5); Red Cell Distribution Width 14.2 % (9.3-17.3); White Blood Count 7.1 T/CUMM (4-12)
--- NOTE | 2017-04-27 07:06 | Gastrointestinal Progress Note ---
Assessment and Plan (1) Lower gastrointestinal hemorrhage Status: Acute Assessment and plan: This patient had a fairly large polyp removed from the ascending colon which proved to be a villous polyp and might certainly be experiencing a post polypectomy bleed, more likely however is the visible vessel in the rectum that required Endo Clip 2 has opened up and cause further bleeding. This is been associated with a plexus of large internal hemorrhoids which are irritated with the patient's prolonged constipation. I attempted to band these on his last admission approximately 5 days ago and I am concerned that he the bands have come loose or the endo-clipping was not successful and the artery has opened up again. I have ordered a tagged red blood cell scan to look for active bleeding in the proximal ascending colon however if this is not seen I would strongly suggest getting a surgery for hemorrhoidal resection to take care of the problem more definitively for this patient. We attempted to do the hemorrhoidal banding and this was partially successful and I am extremely suspicious that the visible vessel seen will be a recurrent problem for this patient and is not going to be amenable to endoscopic treatment with his ongoing constipation even with judicious use of MiraLAX. 04/26/17--This patient's tagged red blood cell scan was negative, surgery is seen the patient and will consider a rectal ulcer oversew if this becomes necessary. I think if he is maintained on MiraLAX 3 times daily that he should have loosening of bowels to keep this area from being overly irritated. I would wait another week or so before doing any evaluation for rectal impaction to allow the ulcer to heal. The patient could likely be transferred out of the ICU for observation up on the floor for 1 more day at least. 04/27/17--The patient could probably be sent to the floor today as his hematocrit remained stable at this point. The nursing staff have been observing him swallow clear liquids and believe that he is likely aspirating. I will go ahead and order a speech pathology evaluation to double check this and perhaps assess him with different consistencies to see if he will need honey thickened liquids or perhaps a PEG tube if he is badly aspirating. They are noting some small amounts of stool with some clots but again small amounts and his hematocrit is stable/improved from yesterday currently up to 31.7%. Current Visit: No (2) Acute blood loss anemia Status: Acute Assessment and plan: Patient's hematocrit is dropped from 30% to about 19% and he is getting a 2 unit transfusion. We will continue to monitor his hematocrit over time. Again I suspect this is probably coming from the visible vessel or the hemorrhoids in the rectum. 04/26/17--the patient is stable at this point, presumed site of loss is the rectal ulcer with visible vessel status post endo-clipping 2. Current hospitalization likely due to loss of the endoclips on the visible vessel. 04/27/17--This appears to have stopped entirely. I think we can cut back the patient's MiraLAX from 4 times a day to 3 times a day which should be adequate and producing reasonable bowel flow without having to strain. Current Visit: No (3) Internal hemorrhoids Status: Chronic Assessment and plan: Likely the source of the patient's rectal bleeding either from the visible vessel previously seen or from the hemorrhoids themselves. This patient is prone to impaction and stercoral ulcers in addition. He does not appear to be amenable to endoscopic treatment thus far. 04/26/17--No repeat colonoscopy is anticipated. Watch the patient on MiraLAX as we continue to flush him for resolution of the blood loss. 04/27/17--No repeat colonoscopy anticipated, observation Current Visit: No (4) Colon polyps Status: Acute Assessment and plan: This patient had an ascending colon villous polyp that was fair sized, tighter blood cell scan to make sure that the oozing and bleeding seen from the rectum is not coming from this region. We will continue to observe on high doses of MiraLAX 1 capful 4 times daily. This will serve the purpose of flushing out the colon in keeping her bowel movements loose/avoiding impaction. 04/26/17--this patient will need a repeat colonoscopy in April 2020. 04/27/17--As mentioned above. Current Visit: No Gastroenterology - PN: Subj Interval history: Patient is doing all right, nurses state that they are concerned that he is aspirating his liquids into his lungs after observation with swallowing of MiraLAX and other pills. As a result I will order a speech pathology evaluation and swallowing study. The nurses also state that he is put out 2 bowel movements with small amount of clot present. I suspect that his stercoral ulcer has stopped bleeding as his hematocrit is stable at this time. We will continue to observe, although I think he can likely be sent upstairs to the floor today. Exam (Progress Note) - Constitutional Vitals: Period Temp Pulse Resp BP Sys/Chung Pulse Ox Last 24 Hr 97.3 F-98.2 F 53-78 10-19 113-160/61-82 96-98 General appearance: no acute distress - Head Head exam: Present: normocephalic - Eye Eye exam: Present: EOMI - ENT ENT exam: Present: normal exam - Neck Neck exam: Present: normal inspection - Respiratory Respiratory exam: Present: clear to auscultation bilaterally - Cardiovascular Cardiovascular exam: Present: regular rate and rhythm - GI/Abdominal GI/Abdominal exam: Present: normal bowel sounds, distended, soft. Absent: ascites, tenderness, rebound - Extremities Exam Extremities exam: Present: edema (Trace edema), other (AKA noted) - Neurological Exam Neurological exam: Present: altered (Expressive aphasia.) - Psychiatric Psychiatric exam: Present: normal affect, normal mood - Skin Skin exam: Present: warm Results - Labs CBC & BMP: 04/27/17 04:00 04/26/17 03:48 Specialty Discharge - Follow Up or Referrals
[2017-04-27 07:29] LABS: Hematocrit 32.1 VOL% (42.0-52.0); Hemoglobin 10.7 GM/DL (14.0-18.0)
[2017-04-27 08:05] VITALS: BP 126/77
[2017-04-27] MEDS ORDERED: POLYETHYLENE GLYCOL POWDER 17 GM PACK PO SCH (09:00)
[2017-04-27] MEDS ORDERED: PANTOPRAZOLE 40 MG TABLET PO SCH (09:00)
[2017-04-27] MEDS ORDERED: NON-FORMULARY MEDICATION (Omeprazole [Omeprazole] 20 MG) PO SCH (09:00)
[2017-04-27] MEDS: INSULIN REGULAR 100 UNIT/ML SUBCUT SCH (09:03)
--- NOTE | 2017-04-27 09:06 | Discharge Summary ---
Hospital Course - Hospital Course Hospital Course: Mr. García is a 66-year-old -[place] male that was admitted with rectal bleeding and acute blood loss anemia. The patient was recently discharged from the hospital after colonoscopy with polyp removal and banding of hemorrhoids. This patient had a fairly large polyp removed from the ascending colon which proved to be a villous polyp and might certainly be experiencing a post polypectomy bleed, more likely however is the visible vessel in the rectum that required Endo Clip 2 has opened up and cause further bleeding. This is been associated with a plexus of large internal hemorrhoids which are irritated with the patient's prolonged constipation. I attempted to band these on his last admission approximately 5 days ago and I am concerned that he the bands have come loose or the endo-clipping was not successful and the artery has opened up again. I have ordered a tagged red blood cell scan to look for active bleeding in the proximal ascending colon however if this is not seen I would strongly suggest getting a surgery for hemorrhoidal resection to take care of the problem more definitively for this patient. We attempted to do the hemorrhoidal banding and this was partially successful and I am extremely suspicious that the visible vessel seen will be a recurrent problem for this patient and is not going to be amenable to endoscopic treatment with his ongoing constipation even with judicious use of MiraLAX. He had a tagged red blood cell scan which was negative for any acute bleeding. He received 2 units of packed red blood cells. His hemoglobin and hematocrit have been stable. He has had no further bleeding. Pressure stable and the remainder of his vital signs are unremarkable. He is being discharged back to the custodial. If he continues to bleed he will need another tagged red blood cell scan and possibly surgery consult. The patient was seen by Dr. Hung ARRIETA during this hospitalization and no surgical interventions were recommended at this time. - Time spent with patient Time with patient DS: Greater than 30 minutes (Total discharge time for this patient, including [id number] time, clinical documentation, medication reconciliation, and discharge planning was 38 minutes.) Diagnosis - Discharge Diagnosis (1) Rectal bleeding Status: Resolved (2) Acute blood loss anemia Status: Acute (3) History of stroke Status: Chronic (4) History of dementia Status: Chronic (5) Diabetes Status: Chronic (6) Hypertension Status: Chronic (7) Colon polyps Status: Resolved Specialty Discharge - Follow Up or Referrals Discharge Plan - Discharge Data Disposition: Disch/Xfer to Snf Condition at Discharge: Stable Discharge Diet: other (Per speech therapy) Activity: as per physical therapy Hygiene: no restrictions Contact your physician if you experience:: fever over 101, Shortness of breath, Bleeding - Discharge Medications New Polyethylene Glycol Powder [Miralax] 17 gm PO TID Continue DULoxetine [Cymbalta] 90 mg PO QAM Docusate Sodium Cap [Colace Cap] 200 mg PO QAM Carvedilol [Coreg] 12.5 mg PO BID Metformin HCl 500 mg PO TID Lisinopril 40 mg PO QAM Cyanocobalamin (Vitamin B-12) [Cyanocobalamin Injection] 1,000 mcg IM Q30D amLODIPine [Norvasc] 5 mg PO BID Bisacodyl Supp [Dulcolax Supp] 10 mg RECTAL BEDTIME #30 Aspirin [Ecotrin] 81 mg PO 0800 OLANZapine [Olanzapine] 15 mg PO BEDTIME Acetaminophen 1,000 mg PO Q6H PRN MDD 3000MG/24H PRN Reason: Fever, Headache, Mild Pain Gabapentin 600 mg PO BID Insulin Glargine [Lantus] 48 unit SUBCUT BEDTIME Omeprazole 20 mg PO QAM Insulin Regular [HumuLIN R] 5 - 15 unit SUBCUT 0500,1600,2000 HYDROcodone/ACETAMIN 7.5-325 [[place] 7.5-325] 1 tablet PO DAILY PRN PRN Reason: PRIOR TO WOUND CARE - Follow Up or Referral - Forms/Instructions Instructions: Rectal Bleeding (ED) Exam - Constitutional Vitals: Period Temp Pulse Resp BP Sys/Chung Pulse Ox Last 24 Hr 97.2 F-98.2 F 53-78 10-19 113-160/61-82 96-98 Discharge Results Procedures and tests throughout hospitalization: Pending Orders 04/27/17 19:00 Hemoglobin and Hematocrit Q12H 04/28/17 07:00 Hemoglobin and Hematocrit Q12H 04/28/17 19:00 Hemoglobin and Hematocrit Q12H Labs on day of discharge: Labs from last 24 hours 04/27/17 04/27/17 04/26/17 07: 04:00 22:03 WBC 7.1 RBC 3.58 L Hgb 10.7 L 10.4 L Hct 32.1 L 31.7 L MCV 88.5 MCH 29 MCHC 32.8 RDW 14.2 Plt Count 248 MPV 10.3 Neut % (Auto) 59.8 Lymph % (Auto) 25.8 [place] % (Auto) 9.8 Eos % (Auto) 3.9 Baso % (Auto) 0.3 Neut # (Auto) 4.3 Lymph # (Auto) 1.8 [place] # (Auto) 0.7 Eos # (Auto) 0.3 Baso # (Auto) 0.0 Immature Gran % 0.4 Nucleated RBC % 0.0 Immature Gran # 0.03 Nucleated RBCs # 0.00 POC Glucose 265 H 04/26/17 04/26/17 04/25/17 15:38 11:09 23:21 WBC RBC Hgb Hct MCV MCH MCHC RDW Plt Count MPV Neut % (Auto) Lymph % (Auto) [place] % (Auto) Eos % (Auto) Baso % (Auto) Neut # (Auto) Lymph # (Auto) [place] # (Auto) Eos # (Auto) Baso # (Auto) Immature Gran % Nucleated RBC % Immature Gran # Nucleated RBCs # POC Glucose 293 H 219 H 95 DS: Provider Date of admission: 04/24/17 22:33 Primary care physician: . No PCP Attending physician on admission: Daniel Sapp MD Consults: 04/24/17 22:39 Consult to Physician [CONS] Routine Comment: Recurrent GI bleed Consulting Provider: Royce Booth 04/25/17 00:00 Consult to Wound Care - [place] [CONS] Routine Reason for Wound Care: Wound Care Management 04/25/17 00:57 Consult to Dietitian [CONS] Routine Reason for Dietitian: Dietary Consult 04/25/17 07:32 Consult to Physician [CONS] Routine Comment: rectal Bleeding- hemorrhoids Consulting Provider: Lowell Persaud III. Person Notified: Caridad Date Notified: 04/25/17 Time Notified: 09:10 04/27/17 07:00 Consult to Speech Therapy [CONS] Routine Reason for Speech Therapy: Swallowing Impairment Consult Comment: Nurses concerned about aspiration with liquids. Discharging clinician: Analisa Cantor MD Expected date of discharge: 04/27/17
--- NOTE | 2017-04-27 09:26 | General Surgery Progress Note ---
Assessment and Plan (1) Lower gastrointestinal hemorrhage Status: Acute Assessment and plan: He appears to be stable and not actively bleeding. If he has any further signs of bleeding then we could taken to the operating room. Obviously he will be at high risk for complications. This will need to be done under general anesthesia. I may or may not be able to visualize the bleeding site transanally but if so we could look at oversewing. I do not appreciate his hemorrhoids on physical exam but this is a very difficult exam. I would favor oversewing rather than trying to do a formal hemorrhoidectomy but this would depend on what we are seeing at the time of surgery. The bleeding site that I am palpating appears to be well above the dentate line and above the typical site for a typical hemorrhoid. 04/26: He has not had any rectal bleeding since yesterday. I see no signs of active bleeding. If he has further bleeding we may consider operative exploration transanally. 04/27: There has been no further bleeding. I would continue observation and would only look at surgery in this patient if he had further active bleeding that appeared that it was coming from his anorectal region. I will sign off for now but my group is available if needed. Current Visit: No Subjective Patient reports: Present: no new complaints, feels better. Absent: blood in stool Exam - Constitutional Vitals: Period Temp Pulse Resp BP Sys/Chung Pulse Ox Last 24 Hr 97.2 F-98.2 F 53-78 10-19 113-160/61-82 96-98 - GI/Abdominal GI/Abdominal exam: Present: soft. Absent: distended - Anus/Rectum Anus/Rectum: other (No further rectal blood) Results - Labs CBC & BMP: 04/27/17 07:17 04/26/17 03:48 Lab Results: I have reviewed the past 24 hour labs Specialty Discharge - Follow Up or Referrals
[2017-04-27] MEDS: CARVEDILOL 12.5 MG TABLET PO SCH (10:59)
[2017-04-27] MEDS: DULoxetine 30 MG CAPSULE PO SCH (10:59)
[2017-04-27] MEDS: LISINOPRIL 20 MG TABLET PO SCH (11:00)
[2017-04-27] MEDS: GABAPENTIN 600 MG TABLET PO SCH (11:00)
[2017-04-27] MEDS: amLODIPine 5 MG TABLET PO SCH (11:00)
[2017-04-27] MEDS: metFORMIN 500 MG TABLET PO SCH (11:00)
--- NOTE | 2017-04-30 16:07 | Physician Query Form ---
CLICK EDIT DOCUMENT TO SELECT QUERY ANSWER --> OK --> SIGN Stephanie Martinez RN Clinical Electrocardiogram Technician W) [phone] (f) [phone] [email or web address] PROVIDERS: Make your selection(s) from the choices in EACH section by typing an "x" and enter comments in the comment section. Please use your independent medical judgment in providing your response. This request does not imply that any particular answer is desired or expected. CLINICAL INDICATORS: (Providers should not edit this section) Based on documentation of "Acute anemia" :Acute lower GI hemorrhage" History of internal hemorrhoids. "presumed site of loss is the rectal ulcer with visible vessel status post endo-clipping 2. Current hospitalization likely due to loss of the endoclips on the visible vessel." Based on the above, could you clarify the appropriate diagnosis, if significant , that supports the above abnormalities and additional evaluation, monitoring, and/or treatment rendered: ( X) Lower GI Hemorrhage due to Rectal Ulcer ( ) Lower GI Hemorrhage due to hemorrhoids ( ) Lower GI Hemorrhage due to other (Please specify) ( ) Other, please specify: ( ) Clinically unable to determine COMMENTS: PLEASE ALSO DOCUMENT RESPONSE IN PROGRESS NOTES AND/OR DISCHARGE SUMMARY Use of terms such as suspected, likely, or probable (associated with a specific diagnosis that is being evaluated, monitored, or treated as if it exists) are acceptable and can be restated in the discharge summary if not ruled out. MTDD
== END 2017-04-27 11:28 | DRG 394 ==
LOC: EDUNIT# → EDBD → N.ED 20:54 → SUATTDRO 22:23 → N.EDINP 22:23 → N.CC 23:29
PROVIDERS: ADMIT Internal Medicine; ATTEND Family Medicine

== ENCOUNTER 2017-08-18 22:36 | Inpatient (IN) ==
[2017-08-18] MEDS ORDERED: SODIUM CHLORIDE 0.9% 3,000 ML IV ONE (23:33)
[2017-08-18] MEDS ORDERED: CEFEPIME 2,000 MG in SODIUM CHLORIDE 0.9% 100 ML IV STA (23:35)
[2017-08-19 00:44] LABS: Basophils % 0.3 % (0.0-0.8); Eosinophils # 0.1 10*3/uL (0.0-0.87); Eosinophils % 0.6 % (0.00-10.9); Hematocrit 32.8 VOL% (42.0-52.0); Hemoglobin 10.8 GM/DL (14.0-18.0); Immature Granulocytes % 0.5 %; Immature Granulocytes Absolute 0.08 #; Lymphocytes # 1.9 10*3/uL (1.4-4.0); Lymphocytes % 11.9 % (21.2-54.2); Mean Corpuscular HGB Conc 32.9 GM/DL (32-36); Mean Corpuscular Hemoglobin 30 PG (27-34); Mean Corpuscular Volume 89.9 FL (87-102); Mean Platelet Volume 9.2 FL (9.6-12.0); Monocytes # 1.1 10*3/uL (0.11-0.8); Monocytes % 6.7 % (1.7-12.7); Neutrophils # 12.5 10*3/uL (1.4-7.4); Platelet Count 308 T/CUMM (130-400); Red Blood Count 3.65 MC/CUMM (3.8-5.5); Red Cell Distribution Width 14.8 % (9.3-17.3); White Blood Count 15.7 T/CUMM (4-12)
[2017-08-19 01:03] LABS: Lactic Acid 1.5 MMOL/L (0.4-2.0)
[2017-08-19 01:05] LABS: Albumin 2.5 G/DL (3.4-5.0); Bilirubin,Total 0.4 MG/DL (0.2-1.0); Osmolality,Calculated 287.1 MOS/KG (273-304); Potassium 4.1 MMOL/L (3.5-5.1); Total Protein 7.1 G/DL (6.4-8.3)
[2017-08-19] MEDS ORDERED: GLUCAGON 1 MG VIAL IM PRN (01:55)
[2017-08-19] MEDS ORDERED: ONDANSETRON 4 MG/2 ML VIAL IV PRN (01:55)
[2017-08-19] MEDS ORDERED: CEFTAROLINE 600 MG in SODIUM CHLORIDE 0.9% 50 ML IV SCH (02:30)
[2017-08-19 02:44] LABS: Apearance,Urine CLOUDY (Clear); Bacteria,Urine Moderate /HPF (Few); Bilirubin,Urine Negative (Negative); Blood, Urine Large mg/dL (Negative); Glucose,Urine (UA) Negative (Negative); Ketones,Urine Negative (Negative); Nitrite,Urine Negative (Negative); Protein,Urine >=500 MG/DL; RBC,Urine 1712 /HPF (0-4); Urine Color Amber (Yellow); Urine Specific Gravity 1.022 (1.001-1.035); Urine Urobilinogen < 2.0 EU/DL (0.2-1.0); WBC,Urine 2257 /HPF (0-6)
[2017-08-19] MEDS: VANCOMYCIN INJ 1,500 MG in SODIUM CHLORIDE 0.9% 500 ML IV SCH ×2 (02:52→13:29)
[2017-08-19] MEDS ORDERED: HEPARIN 5,000 UNIT/1 ML VIAL SUBCUT SCH (03:30)
[2017-08-19] MEDS: SODIUM CHLORIDE 0.9% 1,000 ML IV SCH (04:00)
[2017-08-19] MEDS: INSULIN REGULAR 100 UNIT/ML SUBCUT SCH ×3 (05:56→20:26)
[2017-08-19 05:58] LABS: Calcium 8.2 MG/DL (8.5-10.1); Osmolality,Calculated 297.3 MOS/KG (273-304); Potassium 4.4 MMOL/L (3.5-5.1)
[2017-08-19] MEDS: INSULIN LISPRO 100 UNIT/ML SUBCUT SCH ×4 (07:32→20:25)
[2017-08-19 08:18] LABS: Basophils % 0.1 % (0.0-0.8); Eosinophils # 0.1 10*3/uL (0.0-0.87); Eosinophils % 0.7 % (0.00-10.9); Hematocrit 31.1 VOL% (42.0-52.0); Hemoglobin 9.9 GM/DL (14.0-18.0); Immature Granulocytes % 0.5 %; Immature Granulocytes Absolute 0.08 #; Lymphocytes # 1.4 10*3/uL (1.4-4.0); Lymphocytes % 9.3 % (21.2-54.2); Mean Corpuscular HGB Conc 31.8 GM/DL (32-36); Mean Corpuscular Hemoglobin 29 PG (27-34); Mean Corpuscular Volume 91.5 FL (87-102); Mean Platelet Volume 9.7 FL (9.6-12.0); Monocytes # 1.1 10*3/uL (0.11-0.8); Monocytes % 7.4 % (1.7-12.7); Neutrophils # 12.5 10*3/uL (1.4-7.4); Platelet Count 290 T/CUMM (130-400); White Blood Count 15.2 T/CUMM (4-12)
[2017-08-19] MEDS: CARVEDILOL 12.5 MG TABLET PO SCH ×2 (08:31→17:07)
[2017-08-19] MEDS: ASPIRIN EC 81 MG TABLET PO SCH (08:31)
[2017-08-19] MEDS: DOCUSATE SODIUM 100 MG CAPSULE PO SCH (08:31)
[2017-08-19] MEDS: GABAPENTIN 600 MG TABLET PO SCH ×2 (08:32→20:27)
[2017-08-19] MEDS: POLYETHYLENE GLYCOL POWDER 17 GM PACK PO SCH ×3 (08:32→20:27)
[2017-08-19] MEDS: LISINOPRIL 20 MG TABLET PO SCH (08:32)
[2017-08-19] MEDS: DULoxetine 30 MG CAPSULE PO SCH (08:32)
[2017-08-19] MEDS: amLODIPine 5 MG TABLET PO SCH ×2 (08:32→20:27)
[2017-08-19] MEDS: PANTOPRAZOLE 40 MG TABLET PO SCH (08:33)
[2017-08-19] MEDS: CEFEPIME 1,000 MG in SYRINGE 1 EACH IV SCH (16:22)
[2017-08-19] MEDS: OLANZapine 5 MG TABLET PO SCH (20:33)
[2017-08-19] MEDS: BISACODYL 10 MG SUPP RECTAL SCH (20:33)
[2017-08-19] MEDS: INSULIN GLARGINE 100 UNIT/ML SUBCUT SCH (20:40)
[2017-08-20] MEDS: VANCOMYCIN INJ 1,500 MG in SODIUM CHLORIDE 0.9% 500 ML IV SCH ×2 (00:24→14:39)
[2017-08-20] MEDS: SODIUM CHLORIDE 0.9% 1,000 ML IV SCH (02:16)
[2017-08-20] MEDS: CEFEPIME 1,000 MG in SYRINGE 1 EACH IV SCH ×2 (04:38→17:52)
[2017-08-20] MEDS: DEXTROSE 50% 25 GM/50 ML VIAL IV PRN (04:47)
[2017-08-20] MEDS: INSULIN REGULAR 100 UNIT/ML SUBCUT SCH ×3 (04:53→21:15)
[2017-08-20] MEDS: INSULIN LISPRO 100 UNIT/ML SUBCUT SCH ×4 (08:18→23:06)
[2017-08-20] MEDS: DOCUSATE SODIUM 100 MG CAPSULE PO SCH (08:50)
[2017-08-20] MEDS: DULoxetine 30 MG CAPSULE PO SCH (08:50)
[2017-08-20] MEDS: PANTOPRAZOLE 40 MG TABLET PO SCH (08:51)
[2017-08-20] MEDS: CARVEDILOL 12.5 MG TABLET PO SCH ×2 (08:51→18:18)
[2017-08-20] MEDS: POLYETHYLENE GLYCOL POWDER 17 GM PACK PO SCH ×3 (08:51→23:06)
[2017-08-20] MEDS: LISINOPRIL 20 MG TABLET PO SCH (08:51)
[2017-08-20] MEDS: ASPIRIN EC 81 MG TABLET PO SCH (08:51)
[2017-08-20] MEDS: GABAPENTIN 600 MG TABLET PO SCH ×2 (10:03→23:04)
[2017-08-20] MEDS: amLODIPine 5 MG TABLET PO SCH ×2 (10:03→23:04)
[2017-08-20] MEDS: ACETAMINOPHEN 325 MG TABLET PO PRN (11:16)
[2017-08-20 12:05] LABS: Basophils % 0.2 % (0.0-0.8); Eosinophils # 0.2 10*3/uL (0.0-0.87); Eosinophils % 1.5 % (0.00-10.9); Hematocrit 28.5 VOL% (42.0-52.0); Hemoglobin 9.3 GM/DL (14.0-18.0); Immature Granulocytes % 0.7 %; Immature Granulocytes Absolute 0.09 #; Lymphocytes # 1.5 10*3/uL (1.4-4.0); Lymphocytes % 10.8 % (21.2-54.2); Mean Corpuscular HGB Conc 32.6 GM/DL (32-36); Mean Corpuscular Hemoglobin 29 PG (27-34); Mean Corpuscular Volume 89.1 FL (87-102); Mean Platelet Volume 9.3 FL (9.6-12.0); Monocytes % 7.3 % (1.7-12.7); Neutrophils # 10.9 10*3/uL (1.4-7.4); Neutrophils % 79.5 % (38.7-73.9); Platelet Count 290 T/CUMM (130-400); Red Cell Distribution Width 14.6 % (9.3-17.3); White Blood Count 13.7 T/CUMM (4-12)
[2017-08-20 12:15] LABS: PT Patient Result 10.7 SECS; Partial Thromboplastin Time 26.4 SECS (0-40)
[2017-08-20 12:32] LABS: Albumin 1.9 G/DL (3.4-5.0); Calcium 8.2 MG/DL (8.5-10.1); Osmolality,Calculated 287.6 MOS/KG (273-304); Phosphorous 2.7 MG/DL (2.5-4.9); Potassium 3.7 MMOL/L (3.5-5.1)
[2017-08-20] MEDS: SODIUM CHLOR 0.45% KCL 20 MEQ 20 MEQ/1,000 ML BAG IV SCH (14:43)
[2017-08-20 15:18] LABS: Apearance,Urine CLOUDY (Clear); Bacteria,Urine Many /HPF (Few); Bilirubin,Urine Negative (Negative); Blood, Urine Moderate mg/dL (Negative); Glucose,Urine (UA) 50 mg/dL (Negative); Ketones,Urine Negative (Negative); Mucus,Urine Few /LPF (Occasional); Nitrite,Urine Negative (Negative); Protein,Urine 100 MG/DL; RBC,Urine 10283 /HPF (0-4); Urine Color Brown (Yellow); Urine Specific Gravity 1.018 (1.001-1.035); Urine Urobilinogen < 2.0 EU/DL (0.2-1.0); WBC,Urine 714 /HPF (0-6)
[2017-08-20 18:40] LABS: Hematocrit 33.1 VOL% (42.0-52.0); Hemoglobin 10.7 GM/DL (14.0-18.0)
[2017-08-20] MEDS: OLANZapine 5 MG TABLET PO SCH (23:04)
[2017-08-20] MEDS: INSULIN GLARGINE 100 UNIT/ML SUBCUT SCH (23:05)
[2017-08-20] MEDS: BISACODYL 10 MG SUPP RECTAL SCH ×2 (23:21→23:33)
[2017-08-21] MEDS: VANCOMYCIN INJ 1,500 MG in SODIUM CHLORIDE 0.9% 500 ML IV SCH ×3 (02:29→19:56)
[2017-08-21 03:03] LABS: Hematocrit 27.7 VOL% (42.0-52.0); Hemoglobin 9.1 GM/DL (14.0-18.0)
[2017-08-21 03:04] LABS: Basophils % 0.2 % (0.0-0.8); Eosinophils # 0.2 10*3/uL (0.0-0.87); Eosinophils % 1.9 % (0.00-10.9); Hematocrit 28.2 VOL% (42.0-52.0); Hemoglobin 9.3 GM/DL (14.0-18.0); Immature Granulocytes % 1.2 %; Immature Granulocytes Absolute 0.15 #; Lymphocytes # 1.7 10*3/uL (1.4-4.0); Lymphocytes % 12.9 % (21.2-54.2); Mean Corpuscular Hemoglobin 29 PG (27-34); Mean Corpuscular Volume 88.1 FL (87-102); Mean Platelet Volume 9.4 FL (9.6-12.0); Monocytes # 0.9 10*3/uL (0.11-0.8); Monocytes % 7.2 % (1.7-12.7); Neutrophils # 9.9 10*3/uL (1.4-7.4); Neutrophils % 76.6 % (38.7-73.9); Platelet Count 290 T/CUMM (130-400); Red Cell Distribution Width 14.6 % (9.3-17.3); White Blood Count 12.9 T/CUMM (4-12)
[2017-08-21 03:17] LABS: Albumin 1.8 G/DL (3.4-5.0); Osmolality,Calculated 282.8 MOS/KG (273-304); Phosphorous 2.2 MG/DL (2.5-4.9); Potassium 3.4 MMOL/L (3.5-5.1)
[2017-08-21] MEDS: CEFEPIME 1,000 MG in SYRINGE 1 EACH IV SCH ×2 (04:30→16:55)
[2017-08-21] MEDS: INSULIN REGULAR 100 UNIT/ML SUBCUT SCH ×3 (06:04→20:38)
[2017-08-21] MEDS: DEXTROSE 50% 25 GM/50 ML VIAL IV PRN (06:05)
[2017-08-21] MEDS: INSULIN LISPRO 100 UNIT/ML SUBCUT SCH ×4 (08:16→20:40)
[2017-08-21 08:53] LABS: Hematocrit 27.7 VOL% (42.0-52.0); Hemoglobin 9.1 GM/DL (14.0-18.0)
[2017-08-21] MEDS: CARVEDILOL 12.5 MG TABLET PO SCH ×2 (09:18→16:55)
[2017-08-21] MEDS: amLODIPine 5 MG TABLET PO SCH ×2 (09:18→20:38)
[2017-08-21] MEDS: DOCUSATE SODIUM 100 MG CAPSULE PO SCH (15:03)
[2017-08-21] MEDS: ACETAMINOPHEN 325 MG TABLET PO PRN (15:03)
[2017-08-21] MEDS: GABAPENTIN 600 MG TABLET PO SCH ×2 (15:04→20:41)
[2017-08-21] MEDS: DULoxetine 30 MG CAPSULE PO SCH (15:04)
[2017-08-21] MEDS: POLYETHYLENE GLYCOL POWDER 17 GM PACK PO SCH ×3 (15:04→20:41)
[2017-08-21] MEDS: LISINOPRIL 20 MG TABLET PO SCH (15:04)
[2017-08-21] MEDS: PANTOPRAZOLE 40 MG TABLET PO SCH (15:21)
[2017-08-21] MEDS: SODIUM CHLOR 0.45% KCL 20 MEQ 20 MEQ/1,000 ML BAG IV SCH (15:21)
[2017-08-21] MEDS ORDERED: POTASSIUM PHOSPHATE 15 MMOL in SODIUM CHLORIDE 0.9% 100 ML IV ONE (16:00)
[2017-08-21] MEDS ORDERED: KETAMINE 500 MG/10 ML VIAL ONE (17:05)
[2017-08-21] MEDS ORDERED: PROPOFOL 200 MG/20 ML VIAL IV ONE (17:07)
[2017-08-21] MEDS ORDERED: SODIUM CHLORIDE 0.9% 250 ML IV ONE (17:07)
[2017-08-21 17:35] LABS: Hematocrit 30.1 VOL% (42.0-52.0); Hemoglobin 10.1 GM/DL (14.0-18.0)
[2017-08-21] MEDS: BISACODYL 10 MG SUPP RECTAL SCH (20:38)
[2017-08-21] MEDS: OLANZapine 5 MG TABLET PO SCH (20:38)
[2017-08-21] MEDS: INSULIN GLARGINE 100 UNIT/ML SUBCUT SCH (20:39)
[2017-08-22] MEDS ORDERED: ACETAMINOPHEN 650 MG SUPP RECTAL PRN (02:55)
[2017-08-22] MEDS: CEFEPIME 1,000 MG in SYRINGE 1 EACH IV SCH (03:11)
[2017-08-22] MEDS: INSULIN REGULAR 100 UNIT/ML SUBCUT SCH ×3 (05:20→22:10)
[2017-08-22] MEDS: SODIUM CHLOR 0.45% KCL 20 MEQ 20 MEQ/1,000 ML BAG IV SCH (06:42)
[2017-08-22 07:07] LABS: Basophils % 0.1 % (0.0-0.8); Eosinophils # 0.3 10*3/uL (0.0-0.87); Eosinophils % 1.8 % (0.00-10.9); Hemoglobin 8.9 GM/DL (14.0-18.0); Immature Granulocytes % 0.8 %; Immature Granulocytes Absolute 0.11 #; Lymphocytes # 1.6 10*3/uL (1.4-4.0); Lymphocytes % 11.6 % (21.2-54.2); Mean Corpuscular Hemoglobin 29 PG (27-34); Mean Corpuscular Volume 87.9 FL (87-102); Mean Platelet Volume 9.6 FL (9.6-12.0); Monocytes % 7.1 % (1.7-12.7); Neutrophils # 10.6 10*3/uL (1.4-7.4); Neutrophils % 78.6 % (38.7-73.9); Platelet Count 313 T/CUMM (130-400); Red Blood Count 3.07 MC/CUMM (3.8-5.5); Red Cell Distribution Width 14.6 % (9.3-17.3); White Blood Count 13.6 T/CUMM (4-12)
[2017-08-22 07:32] LABS: Albumin 1.7 G/DL (3.4-5.0); Calcium 8.2 MG/DL (8.5-10.1); Osmolality,Calculated 283.8 MOS/KG (273-304); Phosphorous 2.9 MG/DL (2.5-4.9); Potassium 3.7 MMOL/L (3.5-5.1)
[2017-08-22] MEDS: INSULIN LISPRO 100 UNIT/ML SUBCUT SCH ×4 (09:17→22:11)
[2017-08-22] MEDS: POLYETHYLENE GLYCOL POWDER 17 GM PACK PO SCH ×3 (09:18→22:33)
[2017-08-22] MEDS: CARVEDILOL 12.5 MG TABLET PO SCH ×2 (09:18→17:13)
[2017-08-22] MEDS: PANTOPRAZOLE 40 MG TABLET PO SCH (09:18)
[2017-08-22] MEDS: GABAPENTIN 600 MG TABLET PO SCH ×2 (09:18→22:32)
[2017-08-22] MEDS: LISINOPRIL 20 MG TABLET PO SCH (09:18)
[2017-08-22] MEDS: amLODIPine 5 MG TABLET PO SCH ×2 (09:18→22:33)
[2017-08-22] MEDS: DULoxetine 30 MG CAPSULE PO SCH (09:18)
[2017-08-22] MEDS: DOCUSATE SODIUM 100 MG CAPSULE PO SCH (09:18)
[2017-08-22] MEDS: VANCOMYCIN INJ 1,500 MG in SODIUM CHLORIDE 0.9% 500 ML IV SCH (12:00)
[2017-08-22] MEDS: SODIUM HYPOCHLORITE 0.25% IRRIG 473 ML BOTTLE TOP SCH (13:00)
[2017-08-22] MEDS: ceFAZolin 1,000 MG in SYRINGE 1 EACH IV SCH ×2 (15:11→22:25)
[2017-08-22] MEDS: INSULIN GLARGINE 100 UNIT/ML SUBCUT SCH (22:32)
[2017-08-22] MEDS: BISACODYL 10 MG SUPP RECTAL SCH (22:33)
[2017-08-22] MEDS: OLANZapine 5 MG TABLET PO SCH (22:33)
[2017-08-23] MEDS: INSULIN REGULAR 100 UNIT/ML SUBCUT SCH ×3 (04:13→21:44)
[2017-08-23] MEDS: VANCOMYCIN INJ 1,500 MG in SODIUM CHLORIDE 0.9% 500 ML IV SCH (05:02)
[2017-08-23] MEDS: ceFAZolin 1,000 MG in SYRINGE 1 EACH IV SCH ×3 (06:19→22:05)
[2017-08-23] MEDS: SODIUM CHLOR 0.45% KCL 20 MEQ 20 MEQ/1,000 ML BAG IV SCH (06:25)
[2017-08-23 06:52] LABS: Basophils % 0.3 % (0.0-0.8); Eosinophils # 0.4 10*3/uL (0.0-0.87); Eosinophils % 3.2 % (0.00-10.9); Immature Granulocytes % 0.8 %; Immature Granulocytes Absolute 0.09 #; Lymphocytes # 1.3 10*3/uL (1.4-4.0); Lymphocytes % 12.2 % (21.2-54.2); Mean Corpuscular HGB Conc 33.3 GM/DL (32-36); Mean Corpuscular Hemoglobin 30 PG (27-34); Mean Corpuscular Volume 88.5 FL (87-102); Mean Platelet Volume 9.3 FL (9.6-12.0); Monocytes # 0.8 10*3/uL (0.11-0.8); Monocytes % 7.3 % (1.7-12.7); Neutrophils # 8.2 10*3/uL (1.4-7.4); Neutrophils % 76.2 % (38.7-73.9); Platelet Count 315 T/CUMM (130-400); Red Blood Count 3.05 MC/CUMM (3.8-5.5); Red Cell Distribution Width 14.8 % (9.3-17.3); White Blood Count 10.8 T/CUMM (4-12)
[2017-08-23] MEDS: CARVEDILOL 12.5 MG TABLET PO SCH ×2 (09:28→15:43)
[2017-08-23] MEDS: amLODIPine 5 MG TABLET PO SCH ×2 (09:28→21:43)
[2017-08-23] MEDS: PANTOPRAZOLE 40 MG TABLET PO SCH (09:28)
[2017-08-23] MEDS: GABAPENTIN 600 MG TABLET PO SCH ×2 (09:28→21:43)
[2017-08-23] MEDS: DULoxetine 30 MG CAPSULE PO SCH (09:28)
[2017-08-23] MEDS: LISINOPRIL 20 MG TABLET PO SCH (09:28)
[2017-08-23] MEDS: INSULIN LISPRO 100 UNIT/ML SUBCUT SCH ×4 (09:29→21:45)
[2017-08-23] MEDS: DOCUSATE SODIUM 100 MG CAPSULE PO SCH (09:29)
[2017-08-23] MEDS: POLYETHYLENE GLYCOL POWDER 17 GM PACK PO SCH ×3 (09:29→21:43)
[2017-08-23] MEDS: SKIN HEALING OINT (AQUAPHOR) 50 GM TUBE TOP SCH (10:00)
[2017-08-23] MEDS: SODIUM HYPOCHLORITE 0.25% IRRIG 473 ML BOTTLE TOP SCH (12:34)
[2017-08-23] MEDS: OLANZapine 5 MG TABLET PO SCH (21:43)
[2017-08-23] MEDS: INSULIN GLARGINE 100 UNIT/ML SUBCUT SCH (21:43)
[2017-08-23] MEDS: BISACODYL 10 MG SUPP RECTAL SCH (21:45)
[2017-08-24] MEDS: INSULIN REGULAR 100 UNIT/ML SUBCUT SCH ×3 (05:51→21:04)
[2017-08-24] MEDS: SODIUM CHLOR 0.45% KCL 20 MEQ 20 MEQ/1,000 ML BAG IV SCH ×2 (05:52→10:08)
[2017-08-24 06:39] LABS: Basophils % 0.4 % (0.0-0.8); Eosinophils # 0.3 10*3/uL (0.0-0.87); Eosinophils % 3.2 % (0.00-10.9); Hematocrit 28.2 VOL% (42.0-52.0); Hemoglobin 9.1 GM/DL (14.0-18.0); Immature Granulocytes % 0.7 %; Immature Granulocytes Absolute 0.07 #; Lymphocytes # 1.5 10*3/uL (1.4-4.0); Lymphocytes % 14.2 % (21.2-54.2); Mean Corpuscular HGB Conc 32.3 GM/DL (32-36); Mean Corpuscular Hemoglobin 29 PG (27-34); Mean Corpuscular Volume 89.5 FL (87-102); Mean Platelet Volume 9.3 FL (9.6-12.0); Monocytes # 0.7 10*3/uL (0.11-0.8); Monocytes % 7.1 % (1.7-12.7); Neutrophils # 7.6 10*3/uL (1.4-7.4); Neutrophils % 74.4 % (38.7-73.9); Platelet Count 363 T/CUMM (130-400); Red Blood Count 3.15 MC/CUMM (3.8-5.5); Red Cell Distribution Width 14.6 % (9.3-17.3); White Blood Count 10.2 T/CUMM (4-12)
[2017-08-24] MEDS: ceFAZolin 1,000 MG in SYRINGE 1 EACH IV SCH ×3 (07:04→23:25)
[2017-08-24 07:09] LABS: Calcium 8.3 MG/DL (8.5-10.1); Magnesium 2.1 MG/DL (1.8-2.4); Osmolality,Calculated 281.1 MOS/KG (273-304); Potassium 4.1 MMOL/L (3.5-5.1)
[2017-08-24] MEDS: INSULIN LISPRO 100 UNIT/ML SUBCUT SCH ×4 (08:16→21:04)
[2017-08-24] MEDS: POLYETHYLENE GLYCOL POWDER 17 GM PACK PO SCH ×3 (08:17→21:02)
[2017-08-24] MEDS: DOCUSATE SODIUM 100 MG CAPSULE PO SCH (08:53)
[2017-08-24] MEDS: CARVEDILOL 12.5 MG TABLET PO SCH ×2 (09:36→16:31)
[2017-08-24] MEDS: PANTOPRAZOLE 40 MG TABLET PO SCH (09:37)
[2017-08-24] MEDS: GABAPENTIN 600 MG TABLET PO SCH ×2 (09:37→21:03)
[2017-08-24] MEDS: amLODIPine 5 MG TABLET PO SCH ×2 (09:37→21:02)
[2017-08-24] MEDS: DULoxetine 30 MG CAPSULE PO SCH (09:37)
[2017-08-24] MEDS: LISINOPRIL 20 MG TABLET PO SCH (09:37)
[2017-08-24] MEDS: SODIUM HYPOCHLORITE 0.25% IRRIG 473 ML BOTTLE TOP SCH (10:07)
[2017-08-24] MEDS: SKIN HEALING OINT (AQUAPHOR) 50 GM TUBE TOP SCH (10:08)
[2017-08-24] MEDS: OLANZapine 5 MG TABLET PO SCH (21:03)
[2017-08-24] MEDS: INSULIN GLARGINE 100 UNIT/ML SUBCUT SCH (21:22)
[2017-08-24] MEDS: BISACODYL 10 MG SUPP RECTAL SCH (21:23)
[2017-08-25 05:40] LABS: Basophils % 0.3 % (0.0-0.8); Eosinophils # 0.3 10*3/uL (0.0-0.87); Eosinophils % 3.3 % (0.00-10.9); Hematocrit 27.8 VOL% (42.0-52.0); Hemoglobin 9.1 GM/DL (14.0-18.0); Immature Granulocytes % 0.4 %; Immature Granulocytes Absolute 0.04 #; Lymphocytes # 1.5 10*3/uL (1.4-4.0); Lymphocytes % 16.6 % (21.2-54.2); Mean Corpuscular HGB Conc 32.7 GM/DL (32-36); Mean Corpuscular Hemoglobin 29 PG (27-34); Mean Corpuscular Volume 88.8 FL (87-102); Mean Platelet Volume 9.2 FL (9.6-12.0); Monocytes # 0.8 10*3/uL (0.11-0.8); Monocytes % 8.7 % (1.7-12.7); Neutrophils # 6.5 10*3/uL (1.4-7.4); Neutrophils % 70.7 % (38.7-73.9); Platelet Count 414 T/CUMM (130-400); Red Blood Count 3.13 MC/CUMM (3.8-5.5); Red Cell Distribution Width 14.5 % (9.3-17.3); White Blood Count 9.2 T/CUMM (4-12)
[2017-08-25 06:20] LABS: Bilirubin,Total 0.7 MG/DL (0.2-1.0); Calcium 8.7 MG/DL (8.5-10.1); Magnesium 1.9 MG/DL (1.8-2.4); Osmolality,Calculated 278.1 MOS/KG (273-304); Phosphorous 3.5 MG/DL (2.5-4.9)
[2017-08-25] MEDS: SODIUM CHLOR 0.45% KCL 20 MEQ 20 MEQ/1,000 ML BAG IV SCH ×2 (06:28→13:03)
[2017-08-25] MEDS: INSULIN REGULAR 100 UNIT/ML SUBCUT SCH (06:28)
[2017-08-25] MEDS: ceFAZolin 1,000 MG in SYRINGE 1 EACH IV SCH ×3 (06:29→23:24)
[2017-08-25] MEDS: INSULIN LISPRO 100 UNIT/ML SUBCUT SCH ×3 (07:23→18:05)
[2017-08-25] MEDS: POLYETHYLENE GLYCOL POWDER 17 GM PACK PO SCH ×3 (08:32→21:53)
[2017-08-25] MEDS: DOCUSATE SODIUM 100 MG CAPSULE PO SCH (08:32)
[2017-08-25] MEDS: amLODIPine 5 MG TABLET PO SCH ×2 (08:32→21:54)
[2017-08-25] MEDS: GABAPENTIN 600 MG TABLET PO SCH ×2 (08:32→21:53)
[2017-08-25] MEDS: CARVEDILOL 12.5 MG TABLET PO SCH ×2 (08:32→16:20)
[2017-08-25] MEDS: SODIUM HYPOCHLORITE 0.25% IRRIG 473 ML BOTTLE TOP SCH (08:32)
[2017-08-25] MEDS: SKIN HEALING OINT (AQUAPHOR) 50 GM TUBE TOP SCH (08:32)
[2017-08-25] MEDS: DULoxetine 30 MG CAPSULE PO SCH (08:32)
[2017-08-25] MEDS: PANTOPRAZOLE 40 MG TABLET PO SCH (08:33)
[2017-08-25] MEDS: LISINOPRIL 20 MG TABLET PO SCH (08:33)
[2017-08-25] MEDS: BISACODYL 10 MG SUPP RECTAL SCH (21:52)
[2017-08-25] MEDS: OLANZapine 5 MG TABLET PO SCH (22:13)
[2017-08-25] MEDS: INSULIN GLARGINE 100 UNIT/ML SUBCUT SCH (22:32)
[2017-08-26] MEDS: INSULIN LISPRO 100 UNIT/ML SUBCUT SCH ×4 (00:23→16:59)
[2017-08-26] MEDS: ceFAZolin 1,000 MG in SYRINGE 1 EACH IV SCH ×3 (06:26→23:28)
[2017-08-26] MEDS: SODIUM CHLOR 0.45% KCL 20 MEQ 20 MEQ/1,000 ML BAG IV SCH ×2 (06:30→09:24)
[2017-08-26] MEDS: CARVEDILOL 12.5 MG TABLET PO SCH ×2 (09:24→16:58)
[2017-08-26] MEDS: GABAPENTIN 600 MG TABLET PO SCH ×2 (09:24→21:25)
[2017-08-26] MEDS: DULoxetine 30 MG CAPSULE PO SCH (09:24)
[2017-08-26] MEDS: LISINOPRIL 20 MG TABLET PO SCH (09:24)
[2017-08-26] MEDS: DOCUSATE SODIUM 100 MG CAPSULE PO SCH (09:25)
[2017-08-26] MEDS: amLODIPine 5 MG TABLET PO SCH ×2 (09:25→21:25)
[2017-08-26] MEDS: PANTOPRAZOLE 40 MG TABLET PO SCH (09:25)
[2017-08-26] MEDS: POLYETHYLENE GLYCOL POWDER 17 GM PACK PO SCH ×3 (09:25→21:26)
[2017-08-26] MEDS: SODIUM HYPOCHLORITE 0.25% IRRIG 473 ML BOTTLE TOP SCH (09:25)
[2017-08-26] MEDS: SKIN HEALING OINT (AQUAPHOR) 50 GM TUBE TOP SCH (09:26)
[2017-08-26] MEDS: OLANZapine 5 MG TABLET PO SCH (21:25)
[2017-08-26] MEDS: BISACODYL 10 MG SUPP RECTAL SCH (21:26)
[2017-08-26] MEDS: INSULIN GLARGINE 100 UNIT/ML SUBCUT SCH (21:26)
[2017-08-27] MEDS: INSULIN LISPRO 100 UNIT/ML SUBCUT SCH ×4 (00:53→18:12)
[2017-08-27] MEDS: SODIUM CHLOR 0.45% KCL 20 MEQ 20 MEQ/1,000 ML BAG IV SCH ×2 (00:58→06:52)
[2017-08-27 05:43] LABS: Basophils % 0.3 % (0.0-0.8); Eosinophils # 0.2 10*3/uL (0.0-0.87); Eosinophils % 2.5 % (0.00-10.9); Hematocrit 28.1 VOL% (42.0-52.0); Hemoglobin 9.4 GM/DL (14.0-18.0); Immature Granulocytes % 0.4 %; Immature Granulocytes Absolute 0.04 #; Lymphocytes # 1.4 10*3/uL (1.4-4.0); Lymphocytes % 15.6 % (21.2-54.2); Mean Corpuscular HGB Conc 33.5 GM/DL (32-36); Mean Corpuscular Hemoglobin 29 PG (27-34); Mean Corpuscular Volume 87.8 FL (87-102); Mean Platelet Volume 8.8 FL (9.6-12.0); Monocytes # 0.7 10*3/uL (0.11-0.8); Neutrophils # 6.7 10*3/uL (1.4-7.4); Neutrophils % 73.2 % (38.7-73.9); Platelet Count 455 T/CUMM (130-400); Red Cell Distribution Width 14.1 % (9.3-17.3); White Blood Count 9.2 T/CUMM (4-12)
[2017-08-27 06:17] LABS: Albumin 2.2 G/DL (3.4-5.0); Bilirubin,Total 0.7 MG/DL (0.2-1.0); Calcium 8.6 MG/DL (8.5-10.1); Osmolality,Calculated 280.3 MOS/KG (273-304); Phosphorous 2.5 MG/DL (2.5-4.9); Total Protein 6.2 G/DL (6.4-8.3)
[2017-08-27] MEDS: ceFAZolin 1,000 MG in SYRINGE 1 EACH IV SCH ×2 (09:07→15:22)
[2017-08-27] MEDS: SKIN HEALING OINT (AQUAPHOR) 50 GM TUBE TOP SCH (09:09)
[2017-08-27] MEDS: CARVEDILOL 12.5 MG TABLET PO SCH ×2 (09:09→16:52)
[2017-08-27] MEDS: POLYETHYLENE GLYCOL POWDER 17 GM PACK PO SCH ×3 (09:10→21:38)
[2017-08-27] MEDS: DOCUSATE SODIUM 100 MG CAPSULE PO SCH (09:10)
[2017-08-27] MEDS: PANTOPRAZOLE 40 MG TABLET PO SCH (09:10)
[2017-08-27] MEDS: LISINOPRIL 20 MG TABLET PO SCH (09:10)
[2017-08-27] MEDS: DULoxetine 30 MG CAPSULE PO SCH (09:10)
[2017-08-27] MEDS: GABAPENTIN 600 MG TABLET PO SCH ×2 (09:10→21:38)
[2017-08-27] MEDS: amLODIPine 5 MG TABLET PO SCH ×2 (09:10→21:39)
[2017-08-27] MEDS: SODIUM HYPOCHLORITE 0.25% IRRIG 473 ML BOTTLE TOP SCH (12:05)
[2017-08-27] MEDS: BISACODYL 10 MG SUPP RECTAL SCH (21:16)
[2017-08-27] MEDS: OLANZapine 5 MG TABLET PO SCH (21:38)
[2017-08-27] MEDS: INSULIN GLARGINE 100 UNIT/ML SUBCUT SCH (21:43)
[2017-08-28] MEDS: ceFAZolin 1,000 MG in SYRINGE 1 EACH IV SCH ×2 (00:21→06:52)
[2017-08-28] MEDS: SODIUM CHLOR 0.45% KCL 20 MEQ 20 MEQ/1,000 ML BAG IV SCH (00:21)
[2017-08-28] MEDS: INSULIN LISPRO 100 UNIT/ML SUBCUT SCH ×3 (00:43→12:11)
[2017-08-28 06:20] LABS: Basophils % 0.4 % (0.0-0.8); Eosinophils # 0.3 10*3/uL (0.0-0.87); Eosinophils % 3.8 % (0.00-10.9); Hematocrit 31.2 VOL% (42.0-52.0); Hemoglobin 10.1 GM/DL (14.0-18.0); Immature Granulocytes % 0.6 %; Immature Granulocytes Absolute 0.04 #; Lymphocytes # 1.3 10*3/uL (1.4-4.0); Lymphocytes % 19.5 % (21.2-54.2); Mean Corpuscular HGB Conc 32.4 GM/DL (32-36); Mean Corpuscular Hemoglobin 29 PG (27-34); Mean Corpuscular Volume 89.4 FL (87-102); Monocytes # 0.6 10*3/uL (0.11-0.8); Monocytes % 8.4 % (1.7-12.7); Neutrophils # 4.6 10*3/uL (1.4-7.4); Neutrophils % 67.3 % (38.7-73.9); Platelet Count 468 T/CUMM (130-400); Red Blood Count 3.49 MC/CUMM (3.8-5.5); Red Cell Distribution Width 14.3 % (9.3-17.3); White Blood Count 6.9 T/CUMM (4-12)
[2017-08-28 07:10] LABS: Calcium 8.6 MG/DL (8.5-10.1); Magnesium 2.1 MG/DL (1.8-2.4); Osmolality,Calculated 286.1 MOS/KG (273-304); Potassium 4.2 MMOL/L (3.5-5.1)
[2017-08-28] MEDS: amLODIPine 5 MG TABLET PO SCH (09:56)
[2017-08-28] MEDS: DULoxetine 30 MG CAPSULE PO SCH (09:56)
[2017-08-28] MEDS: GABAPENTIN 600 MG TABLET PO SCH (09:56)
[2017-08-28] MEDS: DOCUSATE SODIUM 100 MG CAPSULE PO SCH (09:57)
[2017-08-28] MEDS: SKIN HEALING OINT (AQUAPHOR) 50 GM TUBE TOP SCH (09:57)
[2017-08-28] MEDS: CARVEDILOL 12.5 MG TABLET PO SCH (09:57)
[2017-08-28] MEDS: POLYETHYLENE GLYCOL POWDER 17 GM PACK PO SCH (09:57)
[2017-08-28] MEDS: LISINOPRIL 20 MG TABLET PO SCH (09:57)
[2017-08-28] MEDS: PANTOPRAZOLE 40 MG TABLET PO SCH (09:57)
[2017-08-28] MEDS: SODIUM HYPOCHLORITE 0.25% IRRIG 473 ML BOTTLE TOP SCH (11:59)
[2017-08-28 12:19] VITALS: BP 115/62
[2017-08-31 11:41] LABS: Reason for Referral SEE COMMENTS
== END 2017-08-28 15:04 | DRG 570 ==
LOC: N.ED 22:36 → SUATTDRO 08-19 01:07 → N.EDINP 08-19 01:07 → N.5E 08-19 01:55
PROVIDERS: ADMIT Pediatrics; ATTEND Internal Medicine

== ENCOUNTER 2019-09-29 16:17 | Inpatient (IN) ==
[2019-09-29] MEDS ORDERED: SODIUM CHLORIDE 0.9% 500 ML IV STA (16:39)
[2019-09-29 16:54] LABS: Basophils % 0.5 % (0.0-0.8); Eosinophils # 0.2 10*3/uL (0.0-0.87); Eosinophils % 2.8 % (0.00-10.9); Hematocrit 40.6 VOL% (42.0-52.0); Hemoglobin 13.2 GM/DL (14.0-18.0); Immature Granulocytes % 0.2 %; Immature Granulocytes Absolute 0.02 #; Lymphocytes # 2.3 10*3/uL (1.4-4.0); Lymphocytes % 27.3 % (21.2-54.2); Mean Corpuscular HGB Conc 32.5 GM/DL (32-36); Mean Corpuscular Volume 92.3 FL (87-102); Mean Platelet Volume 10.5 FL (9.6-12.0); Monocytes % 8.8 % (1.7-12.7); Neutrophils % 60.4 % (38.7-73.9); Platelet Count 245 T/CUMM (130-400); Red Cell Distribution Width 13.3 % (9.3-17.3); White Blood Count 8.6 T/CUMM (4-12)
[2019-09-29 17:01] LABS: PT Patient Result 10.6 SECS (9.6-12.2)
[2019-09-29 17:08] LABS: Alanine Aminotransferase 32 U/L (16-61); Albumin 3.3 G/DL (3.4-5.0); Alkaline Phosphatase 64 U/L (45-117); Aspartate Amino Transferase 25 U/L (0-37); Bilirubin,Total < 0.39 MG/DL (0.2-1.0); Blood Urea Nitrogen 21 MG/DL (7-18); Estimated Glom Filtration Rate 128 ML/MIN; Glucose 152 MG/DL (74-106); Osmolality,Calculated 291.8 MOS/KG (273-304); Total Protein 6.9 G/DL (6.4-8.3)
[2019-09-29] MEDS ORDERED: ONDANSETRON 4 MG/2 ML VIAL IV PRN (18:10)
[2019-09-29] MEDS ORDERED: LABETALOL 20 MG/4 ML SYRINGE IV PRN (18:12)
[2019-09-29 18:49] LABS: Risk Ratio 5.81; VLDL CHOLESTEROL 48.6 MG/DL
[2019-09-29 19:11] LABS: Apearance,Urine CLEAR (Clear); Bacteria,Urine Occasional /HPF (Few); Bilirubin,Urine Negative (Negative); Blood, Urine Negative (Negative); Glucose,Urine (UA) Negative (Negative); Hyaline Casts,Urine 9 /LPF (0-3); Ketones,Urine Negative (Negative); Mucus,Urine Moderate /LPF (Occasional); Nitrite,Urine Negative (Negative); Protein,Urine 100 MG/DL; RBC,Urine 3 /HPF (0-4); Squamous Epithelial Cell,Urine Occasional /HPF (0-10); Urine Specific Gravity 1.028 (1.001-1.035); WBC,Urine 2 /HPF (0-6)
[2019-09-29 19:12] LABS: Urine Color Dark Yellow (Yellow)
[2019-09-29 19:18] LABS: Barbiturates Screen,Urine Negative (Negative); Benzodiazepines Screen,Urine Negative (Negative); Cannabinoid Screen,Urine Negative (Negative); Opiate Screen,Urine Negative (Negative); Phencyclidine Screen,Urine Negative (Negative)
[2019-09-29] MEDS: BISACODYL 10 MG SUPP RECTAL SCH (20:11)
[2019-09-29] MEDS: ROSUVASTATIN 20 MG TABLET PO SCH (20:11)
[2019-09-29] MEDS: carvediloL 12.5 MG TABLET PO SCH (20:11)
[2019-09-29] MEDS: POLYETHYLENE GLYCOL POWDER 17 GM PACK PO SCH (20:12)
[2019-09-29] MEDS: ZINC OXIDE PASTE 113 GM TUBE TOP SCH (20:12)
[2019-09-29] MEDS: ENALAPRIL 10 MG TABLET PO SCH (20:18)
[2019-09-29] MEDS: amLODIPine 5 MG TABLET PO SCH (20:18)
[2019-09-30 00:31] LABS: Basophils % 0.4 % (0.0-0.8); Eosinophils # 0.2 10*3/uL (0.0-0.87); Eosinophils % 2.4 % (0.00-10.9); Hematocrit 36.2 VOL% (42.0-52.0); Hemoglobin 11.7 GM/DL (14.0-18.0); Immature Granulocytes % 0.3 %; Immature Granulocytes Absolute 0.02 #; Lymphocytes % 26.7 % (21.2-54.2); Mean Corpuscular HGB Conc 32.3 GM/DL (32-36); Mean Corpuscular Volume 92.3 FL (87-102); Monocytes % 9.3 % (1.7-12.7); Neutrophils % 60.9 % (38.7-73.9); Platelet Count 199 T/CUMM (130-400); Red Blood Count 3.92 MC/CUMM (3.8-5.5); Red Cell Distribution Width 13.4 % (9.3-17.3); White Blood Count 7.7 T/CUMM (4-12)
[2019-09-30 00:44] LABS: Calcium 8.6 MG/DL (8.5-10.1); Osmolality,Calculated 296.7 MOS/KG (273-304)
[2019-09-30] MEDS ORDERED: ASPIRIN EC 81 MG TABLET PO SCH (08:00)
[2019-09-30] MEDS: INSULIN REGULAR 100 UNIT/ML SUBCUT SCH ×3 (09:42→18:15)
[2019-09-30] MEDS: ASPIRIN 300 MG SUPP RECTAL SCH (09:42)
[2019-09-30] MEDS: ZINC OXIDE PASTE 113 GM TUBE TOP SCH ×2 (09:43→20:45)
[2019-09-30] MEDS: carvediloL 12.5 MG TABLET PO SCH ×2 (09:43→20:45)
[2019-09-30] MEDS: DULoxetine 30 MG CAPSULE PO SCH (09:43)
[2019-09-30] MEDS: DOCUSATE SODIUM 100 MG CAPSULE PO SCH (09:43)
[2019-09-30] MEDS: ENALAPRIL 10 MG TABLET PO SCH ×2 (09:44→20:45)
[2019-09-30] MEDS: POLYETHYLENE GLYCOL POWDER 17 GM PACK PO SCH ×2 (09:44→18:15)
[2019-09-30] MEDS: amLODIPine 5 MG TABLET PO SCH ×2 (09:44→20:45)
[2019-09-30] MEDS: FINASTERIDE 5 MG TABLET PO SCH (09:44)
[2019-09-30] MEDS: BISACODYL 10 MG SUPP RECTAL SCH (20:45)
[2019-09-30] MEDS: ROSUVASTATIN 20 MG TABLET PO SCH (20:45)
[2019-10-01] MEDS: INSULIN REGULAR 100 UNIT/ML SUBCUT SCH ×5 (01:41→22:03)
[2019-10-01] MEDS: POLYETHYLENE GLYCOL POWDER 17 GM PACK PO SCH ×4 (01:41→22:03)
[2019-10-01] MEDS: ZINC OXIDE PASTE 113 GM TUBE TOP SCH ×2 (09:53→22:02)
[2019-10-01] MEDS: carvediloL 12.5 MG TABLET PO SCH ×2 (09:53→22:01)
[2019-10-01] MEDS: DULoxetine 30 MG CAPSULE PO SCH (09:53)
[2019-10-01] MEDS: DOCUSATE SODIUM 100 MG CAPSULE PO SCH (09:53)
[2019-10-01] MEDS: ASPIRIN 300 MG SUPP RECTAL SCH (09:53)
[2019-10-01] MEDS: ENALAPRIL 10 MG TABLET PO SCH ×2 (09:54→22:11)
[2019-10-01] MEDS: amLODIPine 5 MG TABLET PO SCH ×2 (09:54→22:03)
[2019-10-01] MEDS: FINASTERIDE 5 MG TABLET PO SCH (09:54)
[2019-10-01] MEDS: BISACODYL 10 MG SUPP RECTAL SCH (21:59)
[2019-10-01] MEDS: ROSUVASTATIN 20 MG TABLET PO SCH (22:02)
[2019-10-02] MEDS: INSULIN REGULAR 100 UNIT/ML SUBCUT SCH ×4 (08:02→23:06)
[2019-10-02] MEDS: DOCUSATE SODIUM 100 MG CAPSULE PO SCH (09:06)
[2019-10-02] MEDS: carvediloL 12.5 MG TABLET PO SCH ×3 (09:06→23:05)
[2019-10-02] MEDS: DULoxetine 30 MG CAPSULE PO SCH (09:06)
[2019-10-02] MEDS: ENALAPRIL 10 MG TABLET PO SCH ×3 (09:07→23:05)
[2019-10-02] MEDS: POLYETHYLENE GLYCOL POWDER 17 GM PACK PO SCH ×3 (09:07→23:06)
[2019-10-02] MEDS: amLODIPine 5 MG TABLET PO SCH ×3 (09:07→23:05)
[2019-10-02] MEDS: FINASTERIDE 5 MG TABLET PO SCH (09:07)
[2019-10-02] MEDS: ASPIRIN 300 MG SUPP RECTAL SCH (11:53)
[2019-10-02] MEDS: ZINC OXIDE PASTE 113 GM TUBE TOP SCH ×2 (11:53→20:58)
[2019-10-02] MEDS: ROSUVASTATIN 20 MG TABLET PO SCH (20:57)
[2019-10-02] MEDS: BISACODYL 10 MG SUPP RECTAL SCH (21:11)
[2019-10-03] MEDS: dilTIAZem Drip 125 MG/125 ML PREMIX IV SCH (03:38)
[2019-10-03 06:17] LABS: Calcium 9.8 MG/DL (8.5-10.1); Osmolality,Calculated 299.4 MOS/KG (273-304)
[2019-10-03] MEDS ORDERED: LIDOCAINE 2% 5 ML VIAL ONE (06:55)
[2019-10-03] MEDS ORDERED: propofoL 200 MG/20 ML VIAL IV ONE (06:55)
[2019-10-03] MEDS: ZINC OXIDE PASTE 113 GM TUBE TOP SCH ×2 (09:35→21:10)
[2019-10-03] MEDS: DOCUSATE SODIUM 100 MG CAPSULE PO SCH (09:35)
[2019-10-03] MEDS: INSULIN REGULAR 100 UNIT/ML SUBCUT SCH ×4 (09:36→21:09)
[2019-10-03] MEDS: ASPIRIN 300 MG SUPP RECTAL SCH (09:36)
[2019-10-03] MEDS: carvediloL 12.5 MG TABLET PO SCH ×2 (09:37→21:09)
[2019-10-03] MEDS: POLYETHYLENE GLYCOL POWDER 17 GM PACK PO SCH ×3 (09:37→21:09)
[2019-10-03] MEDS: DULoxetine 30 MG CAPSULE PO SCH (09:37)
[2019-10-03] MEDS: amLODIPine 5 MG TABLET PO SCH ×2 (09:38→21:09)
[2019-10-03] MEDS: FINASTERIDE 5 MG TABLET PO SCH (09:38)
[2019-10-03] MEDS: ENALAPRIL 10 MG TABLET PO SCH ×2 (09:38→21:09)
[2019-10-03] MEDS: BISACODYL 10 MG SUPP RECTAL SCH (21:09)
[2019-10-03] MEDS: ROSUVASTATIN 20 MG TABLET PO SCH (21:10)
[2019-10-04] MEDS: dilTIAZem Drip 125 MG/125 ML PREMIX IV SCH (03:42)
[2019-10-04] MEDS: INSULIN REGULAR 100 UNIT/ML SUBCUT SCH ×4 (09:59→21:53)
[2019-10-04] MEDS: FINASTERIDE 5 MG TABLET PO SCH (10:00)
[2019-10-04] MEDS: amLODIPine 5 MG TABLET PO SCH ×2 (10:01→21:52)
[2019-10-04] MEDS: PROPRANOLOL 20 MG TABLET PO SCH ×4 (10:01→21:52)
[2019-10-04] MEDS: DULoxetine 30 MG CAPSULE PO SCH (10:01)
[2019-10-04] MEDS: DOCUSATE SODIUM 100 MG CAPSULE PO SCH (10:01)
[2019-10-04] MEDS: ZINC OXIDE PASTE 113 GM TUBE TOP SCH ×2 (10:02→21:53)
[2019-10-04] MEDS: POLYETHYLENE GLYCOL POWDER 17 GM PACK PO SCH ×3 (10:02→21:52)
[2019-10-04] MEDS: ENALAPRIL 10 MG TABLET PO SCH ×2 (10:02→21:52)
[2019-10-04] MEDS: ASPIRIN 300 MG SUPP RECTAL SCH (10:02)
[2019-10-04] MEDS: ROSUVASTATIN 20 MG TABLET PO SCH (21:52)
[2019-10-04] MEDS: BISACODYL 10 MG SUPP RECTAL SCH (21:53)
[2019-10-05] MEDS: dilTIAZem Drip 125 MG/125 ML PREMIX IV SCH ×2 (03:21→11:15)
[2019-10-05] MEDS: INSULIN REGULAR 100 UNIT/ML SUBCUT SCH ×4 (09:34→20:51)
[2019-10-05] MEDS: DULoxetine 30 MG CAPSULE PO SCH (09:35)
[2019-10-05] MEDS: FINASTERIDE 5 MG TABLET PO SCH (09:35)
[2019-10-05] MEDS: ENALAPRIL 10 MG TABLET PO SCH ×2 (09:35→20:53)
[2019-10-05] MEDS: DOCUSATE SODIUM 100 MG CAPSULE PO SCH (09:36)
[2019-10-05] MEDS: ASPIRIN 300 MG SUPP RECTAL SCH (09:36)
[2019-10-05] MEDS: ZINC OXIDE PASTE 113 GM TUBE TOP SCH ×2 (09:36→20:54)
[2019-10-05] MEDS: PROPRANOLOL 20 MG TABLET PO SCH (09:36)
[2019-10-05] MEDS: amLODIPine 5 MG TABLET PO SCH ×2 (09:37→20:53)
[2019-10-05] MEDS: POLYETHYLENE GLYCOL POWDER 17 GM PACK PO SCH ×3 (09:37→20:54)
[2019-10-05] MEDS ORDERED: hydrALAZINE 20 MG/1 ML VIAL IV PRN (09:55)
[2019-10-05] MEDS: SOTALOL 80 MG TABLET PO SCH (20:53)
[2019-10-05] MEDS: BISACODYL 10 MG SUPP RECTAL SCH (20:53)
[2019-10-05] MEDS: ROSUVASTATIN 20 MG TABLET PO SCH (20:53)
[2019-10-06 04:58] LABS: Basophils % 0.1 % (0.0-0.8); Hematocrit 46.6 VOL% (42.0-52.0); Hemoglobin 15.7 GM/DL (14.0-18.0); Immature Granulocytes % 0.5 %; Immature Granulocytes Absolute 0.07 #; Lymphocytes # 1.1 10*3/uL (1.4-4.0); Lymphocytes % 7.4 % (21.2-54.2); Mean Corpuscular HGB Conc 33.7 GM/DL (32-36); Mean Corpuscular Volume 90.1 FL (87-102); Mean Platelet Volume 11.5 FL (9.6-12.0); Monocytes % 9.1 % (1.7-12.7); Neutrophils % 82.9 % (38.7-73.9); Platelet Count 291 T/CUMM (130-400); Red Blood Count 5.17 MC/CUMM (3.8-5.5); Red Cell Distribution Width 13.8 % (9.3-17.3); White Blood Count 15.4 T/CUMM (4-12)
[2019-10-06 05:18] LABS: Calcium 10.1 MG/DL (8.5-10.1)
[2019-10-06] MEDS: dilTIAZem Drip 125 MG/125 ML PREMIX IV SCH (08:43)
[2019-10-06] MEDS: DULoxetine 30 MG CAPSULE PO SCH (10:35)
[2019-10-06] MEDS: POLYETHYLENE GLYCOL POWDER 17 GM PACK PO SCH ×3 (10:35→21:52)
[2019-10-06] MEDS: FINASTERIDE 5 MG TABLET PO SCH (10:35)
[2019-10-06] MEDS: DOCUSATE SODIUM 100 MG CAPSULE PO SCH (10:36)
[2019-10-06] MEDS: ASPIRIN 300 MG SUPP RECTAL SCH (10:36)
[2019-10-06] MEDS: ZINC OXIDE PASTE 113 GM TUBE TOP SCH ×2 (10:38→21:51)
[2019-10-06] MEDS: amLODIPine 5 MG TABLET PO SCH ×2 (10:39→21:52)
[2019-10-06] MEDS: ENALAPRIL 10 MG TABLET PO SCH (10:39)
[2019-10-06] MEDS: INSULIN REGULAR 100 UNIT/ML SUBCUT SCH ×4 (10:43→21:52)
[2019-10-06] MEDS: SOTALOL 80 MG TABLET PO SCH ×2 (10:44→21:52)
[2019-10-06] MEDS: POTASSIUM CHLORIDE RIDER 10 MEQ in PREMIX 1 EACH IV PRN ×4 (11:19→15:00)
[2019-10-06] MEDS: APIXABAN 5 MG TABLET PO SCH ×2 (13:50→21:52)
[2019-10-06] MEDS: SODIUM CHLORIDE 0.45% 1,000 ML IV SCH (14:28)
[2019-10-06] MEDS: BISACODYL 10 MG SUPP RECTAL SCH (21:51)
[2019-10-06] MEDS: ROSUVASTATIN 20 MG TABLET PO SCH (21:52)
[2019-10-07] MEDS: SODIUM CHLORIDE 0.45% 1,000 ML IV SCH ×3 (01:35→16:03)
[2019-10-07 04:47] LABS: Basophils % 0.1 % (0.0-0.8); Hemoglobin 14.1 GM/DL (14.0-18.0); Immature Granulocytes Absolute 0.17 #; Lymphocytes # 1.3 10*3/uL (1.4-4.0); Lymphocytes % 7.6 % (21.2-54.2); Mean Platelet Volume 11.1 FL (9.6-12.0); Monocytes % 6.8 % (1.7-12.7); Neutrophils % 84.5 % (38.7-73.9); Platelet Count 241 T/CUMM (130-400); Red Blood Count 4.68 MC/CUMM (3.8-5.5); Red Cell Distribution Width 14.5 % (9.3-17.3); White Blood Count 16.8 T/CUMM (4-12)
[2019-10-07 05:13] LABS: Calcium 9.7 MG/DL (8.5-10.1); Osmolality,Calculated 329.6 MOS/KG (273-304)
[2019-10-07] MEDS: dilTIAZem Drip 125 MG/125 ML PREMIX IV SCH ×2 (05:28→07:46)
[2019-10-07] MEDS: POTASSIUM CHLORIDE RIDER 10 MEQ in PREMIX 1 EACH IV PRN ×2 (05:30→06:33)
[2019-10-07] MEDS: FINASTERIDE 5 MG TABLET PO SCH (09:50)
[2019-10-07] MEDS: INSULIN REGULAR 100 UNIT/ML SUBCUT SCH ×4 (09:50→22:24)
[2019-10-07] MEDS: DULoxetine 30 MG CAPSULE PO SCH (09:51)
[2019-10-07] MEDS: APIXABAN 5 MG TABLET PO SCH ×2 (09:51→22:25)
[2019-10-07] MEDS: DOCUSATE SODIUM 100 MG CAPSULE PO SCH (09:51)
[2019-10-07] MEDS: SOTALOL 80 MG TABLET PO SCH ×2 (09:51→22:25)
[2019-10-07] MEDS: POLYETHYLENE GLYCOL POWDER 17 GM PACK PO SCH ×3 (09:51→22:26)
[2019-10-07] MEDS: ZINC OXIDE PASTE 113 GM TUBE TOP SCH ×2 (10:01→22:50)
[2019-10-07] MEDS: amLODIPine 5 MG TABLET PO SCH (10:01)
[2019-10-07 10:32] LABS: Apearance,Urine CLOUDY (Clear); Bacteria,Urine Moderate /HPF (Few); Bilirubin,Urine Negative (Negative); Blood, Urine Moderate mg/dL (Negative); Glucose,Urine (UA) 150 mg/dL (Negative); Hyaline Casts,Urine 4 /LPF (0-3); Ketones,Urine 5 mg/dL (Negative); Mucus,Urine Occasional /LPF (Occasional); Nitrite,Urine Negative (Negative); Protein,Urine 100 MG/DL; Squamous Epithelial Cell,Urine Occasional /HPF (0-10); Urine Color Yellow (Yellow); WBC,Urine 3 /HPF (0-6)
[2019-10-07] MEDS ORDERED: DILTIAZEM 60 MG TABLET PO ONE (11:00)
[2019-10-07] MEDS ORDERED: INSULIN GLARGINE 100 UNIT/ML SUBCUT SCH (21:00)
[2019-10-07] MEDS: PIPERACILLIN/TAZOBACTAM 3,375 MG in SODIUM CHLORIDE 0.9% 100 ML IV SCH (22:25)
[2019-10-07] MEDS: DILTIAZEM 60 MG TABLET PO SCH (22:25)
[2019-10-07] MEDS: ROSUVASTATIN 20 MG TABLET PO SCH (22:25)
[2019-10-07] MEDS: BISACODYL 10 MG SUPP RECTAL SCH (22:25)
[2019-10-07] MEDS: DEXTROSE 5% 1,000 ML IV SCH (22:26)
[2019-10-08] MEDS: PIPERACILLIN/TAZOBACTAM 3,375 MG in SODIUM CHLORIDE 0.9% 100 ML IV SCH ×2 (05:00→12:17)
[2019-10-08 05:26] LABS: Basophils % 0.1 % (0.0-0.8); Eosinophils # 0.1 10*3/uL (0.0-0.87); Eosinophils % 0.4 % (0.00-10.9); Hematocrit 43.6 VOL% (42.0-52.0); Hemoglobin 14.2 GM/DL (14.0-18.0); Immature Granulocytes % 0.4 %; Immature Granulocytes Absolute 0.06 #; Lymphocytes # 1.3 10*3/uL (1.4-4.0); Lymphocytes % 8.9 % (21.2-54.2); Mean Corpuscular HGB Conc 32.6 GM/DL (32-36); Mean Platelet Volume 11.9 FL (9.6-12.0); Neutrophils % 84.2 % (38.7-73.9); Platelet Count 229 T/CUMM (130-400); Red Blood Count 4.69 MC/CUMM (3.8-5.5); Red Cell Distribution Width 14.5 % (9.3-17.3)
[2019-10-08 05:47] LABS: Calcium 9.6 MG/DL (8.5-10.1); Osmolality,Calculated 322.3 MOS/KG (273-304)
[2019-10-08] MEDS: DEXTROSE 5% 1,000 ML IV SCH (05:55)
[2019-10-08] MEDS: DULoxetine 30 MG CAPSULE PO SCH ×2 (09:52→10:11)
[2019-10-08] MEDS: FINASTERIDE 5 MG TABLET PO SCH ×2 (09:53→10:11)
[2019-10-08] MEDS: INSULIN REGULAR 100 UNIT/ML SUBCUT SCH ×2 (09:53→12:16)
[2019-10-08] MEDS: DILTIAZEM 60 MG TABLET PO SCH ×2 (09:53→10:11)
[2019-10-08] MEDS: APIXABAN 5 MG TABLET PO SCH ×2 (09:53→10:11)
[2019-10-08] MEDS: SOTALOL 80 MG TABLET PO SCH ×2 (09:53→10:11)
[2019-10-08] MEDS: DOCUSATE SODIUM 100 MG CAPSULE PO SCH ×2 (09:53→10:12)
[2019-10-08] MEDS: ZINC OXIDE PASTE 113 GM TUBE TOP SCH (09:54)
[2019-10-08] MEDS: POLYETHYLENE GLYCOL POWDER 17 GM PACK PO SCH ×2 (10:07→14:29)
[2019-10-08 12:33] VITALS: BP 163/89
[2019-10-18] MEDS ORDERED: CYANOCOBALAMIN 1000 MCG/1 ML VIAL IM SCH (09:00)
== END 2019-10-08 15:45 | disposition home or self-care (01) | DRG 71 ==
LOC: EDBD → EDUNIT# → N.EDINP 16:17 → N.ED 16:17 → N.4E 18:46 → SUATTDRO 10-02 13:07 → N.TELEN 10-03 03:41
PROVIDERS: ADMIT Internal Medicine Cardiovascular Disease; ATTEND Internal Medicine